=== PATIENT | male | born 1965 | race Caucasian/White ===

== ENCOUNTER 2025-03-08 07:52 | Outpatient (AMB) | payer MEDICARE, MEDICAID, SELFPAY ==
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
--- OUTSIDE RECORDS SUMMARY | 2025-03-08 07:56 | XMS_ITS | Encounter Summary ---
Author Organization [facility] Address [address] [place] [address] Phone Care Team Providers Care Speeder Frame Tender Name Role Phone True Madison MD Primary Care Provider [phone] Reason for Visit * Reason Onset Date Comments Med Refill 07/04/2022 Encounter Details Date Type Department Care Team (Late st Contact Info) Description 07/04/2022 Refill [facility] [address] [place] [id number] Justin Diaz, DO [address] [place] [address] Social History Tobacco Use Types Packs/Day Years Used Date Smoking Tobacco: Some Days Cigarettes 0.3 30 Started: 2019 Smokeless Tobacco: Never Alcohol Use Standard Drinks/Week Comments Never 0 (1 standard drink = 0.6 oz pur e alcohol) Sex and Gender Information Value Date Recorded Sex Assigned at Not on file Legal Sex Male 2:48 PM EDT Gender Identity Not on file Sexual Orientation Not on file documented as of this encounter Miscellaneous Notes * Telephone Encounter - Gloria Esteves - 07/10/2022 2:39 PM EST This PT is requesting that his Furosemide 20 MG be refilled. documented in this encounter Plan of Treatment Upcoming Encounters Date Type Department Care Team (Late st Contact Info) Description 03/12/2025 Orders Only [facility]. [address] [phone] Mukul Godinez MD [address] [phone] Isolated proteinuria 09/13/2025 2:15 PM EDT Office Visit [facility] [address] [place] [phone] Mukul Godinez MD [facility] [address] [phone] documented as of this encounter Visit Diagnoses Not on filedocumented in this encounter Care Teams Speeder Frame Tender Relationship Specialty Start Date End Date True Madison MD PCP - General Internal Medicine 02/02/21 documented as of this encounter
--- OUTSIDE RECORDS SUMMARY | 2025-03-08 07:56 | XMS_ITS ---
Author Name [facility] Organization Unknown Care Team Organization Name Specialty Phone Email Start Date End Da te [facility] ACO 02/17/2025 [facility] Jing Smith Primary [facility] 06/12/2023 02/17/2024 [facility] Gricelda Primary Care 05/08/2022 02/17/2024
--- OUTSIDE RECORDS SUMMARY | 2025-03-08 07:56 | XMS_ITS | Clinical Summary ---
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 04/01/20 24 Active Trelegy Ellipta 100-62.5-25 mcg inhalerIndicat ions:Chronic bronchitis, unspecified chronic bronchitis type (CMS/HCC V24, CMS/HCC V28) Inhale 1 puff (100 mcg total) by mouth 1 (one) time each day. 60 each 3 06/26/20 24 Active levalbuterol (Xopenex HFA) 45 mcg/actuation inhalerIndicat ions:Chronic bronchitis, unspecified chronic bronchitis type (CMS/HCC V24, CMS/HCC V28) Inhale 1-2 puffs by mouth every 6 (six) hours if needed for wheezing or shortness of breath (or cough). 15 g 3 06/26/20 24 2024 Active metoprolol succinate (TOPROL-XL) 50 mg 24 hr tablet 09/10/19 25 Active metFORMIN (GLUCOPHAGE) 500 mg tablet TAKE 1 TABLET BY MOUTH TWICE DAILY 180 tablet 1 09/26/19 25 Active gabapentin (NEURONTIN) 300 mg capsule Take 1 capsule (300 mg total) by mouth 2 (two) times a day. 180 each 1 10/06/19 25 2024 Active atorvastatin (LIPITOR) 20 mg tablet TAKE 1 TABLET BY MOUTH DAILY 90 tablet 1 11/13/19 25 Active magnesium oxide (MAG-OX) 400 mg (241.3 elemental magnesium) tablet TAKE 1 TABLET BY MOUTH 2 TIMES DAILY 60 tablet 3 11/17/19 25 Active albuterol HFA (Ventolin HFA) 90 mcg/actuation inhalerIndicat ions:Chronic bronchitis, unspecified chronic bronchitis type (CMS/HCC V24, CMS/HCC V28) Inhale 2 puffs by mouth every 6 (six) hours if needed for shortness of breath or wheezing. 18 g 1 11/18/19 25 2025 Active enalapril (VASOTEC) 20 mg tablet TAKE 1 TABLET BY MOUTH DAILY 90 tablet 1 12/25/19 25 Active NIFEdipine CC (ADALAT CC) 90 mg 24 hr tablet TAKE 1 TABLET BY MOUTH DAILY 90 tablet 1 12/25/19 25 Active famotidine (PEPCID) 20 mg tablet TAKE 2 TABLETS BY MOUTH TWICE DAILY 120 tablet 3 12/25/19 25 Active blood-glucose meter [facility] OneTouch Meter, Use daily or as directed for monitoring of diabetes. 1 each 01/12/20 25 Active lancets lancets OneTouch, Check blood sugar 1-2 times a day or as directed. 200 each 6 01/12/20 25 Active aspirin 81 mg EC tablet Take 1 tablet (81 mg total) by mouth 1 (one) time each day. 90 tablet 1 01/12/20 25 Active LORazepam (ATIVAN) 0.5 mg tablet Patient can take 1-2 tabs 30 minutes to an hour prior to MRI. 2 tablet 02/16/20 25 Active polyethylene glycol (Golytely) 236-22.74-6.74 -5.86 gram solution Take 4L by mouth once for one dose. May substitue any PEG. Starting at 6PM the night before your procedure drink 1 8oz glasses at your own pace until you complete half of the gallon. Finish 2nd half of the gallon 5 hours before your procedure. 4000 mL 12/23/19 25 2024 Discontinued(T herapy completed) bisacodyL (DULCOLAX) 5 mg EC tablet Take 2 tablets by mouth right before beginning bowel prep. See instructions provided by the office 2 tablet 12/23/19 25 2024 Discontinued(T herapy completed) glucose blood test strip OneTouch, Check blood glucose daily 100 strip 5 01/12/20 25 2024 Discontinued Hospital, Clinic, or Other Facility Administered Medication Ordered Dose Route Frequency Start Date End Date Status perflutren lipid microsphere (DEFINITY) 1.3 mL in sodium chloride 0.9% 8.7 mL injectionIndications: est pain, unspecified type,Coronary artery disease due to lipid rich plaque 10 mL IV Once in imaging 02/11/2025 Active Active Problems Problem Noted Date Diagnosed Date Sacroiliitis, not elsewhere classified ([facility] V24) 06/23/2024 Assessment & Plan (06/23/2024 12:55 PM EST): Mr. Fabian describes several years of right sided low back pain. Sometimes he gets radiation to the anterior thigh. He had a right L2 transforaminal epidural injection in November that partially relieved his pain for several months, but a second injection made things worse. He had severe reproduction of his pain with palpation of the SI joint. Kb's maneuver, Gaenslen's test, and SI joint compression test were all positive on the right side. An MRI of the lumbar spine from [facility] reveals multilevel degenerative changes, a chronic compression fracture of L1, but nothing to explain his pain. I think this is coming from the SI joint. At this point he would like to proceed with physical therapy directed at the SI joint. If he does not get any better, we can send him for a steroid injection in the SI joint. Ultimately I could refer him to Dr. Vernon for consideration of SI joint fusion. Class 1 obesity with serious comorbidity and body mass index (BMI) of 33.0 to 33.9 in adult 05/12/2024 Hx of hepatitis C 04/03/2024 Severe obesity (BMI 35.0-39. 9) with comorbidity ([facility] V24, [facility] V28) 04/03/2024 Tobacco use 04/03/2024 Diabetes mellitus ([facility] V24, [facility] V28) 10/2023 Chronic pain 02/03/2024 Uncontrolled type 2 diabetes mellitus with hyperglycemia ([facility] V24, [facility] V28) 08/27/2023 Assessment & Plan (07/07/2024 12:16 PM EST): Diabetes is previously uncontrolled likely due to corticosteroid injection. Patient is on insulin for a period of time, but is now off insulin, continues only on metformin. He has not been checking his blood sugars over the last 4 months. Refill of the strips and glucometer provided. Orders: Hemoglobin A1c; Future Comprehensive metabolic panel; Future Complete blood count; Future Thyroid stimulating hormone; Future Digital nerve laceration, finger, sequela 2022 Finger laceration involving tendon 04/16/2023 Enchondroma 10/25/2021 Overview (04/03/2024): sternum, accidental discovery on low dose CT scan for lung Ca screening, rediology recommended 6 month repeat. Proteinuria 04/12/2021 Recurrent and persistent hem aturia with other morphologic changes 04/12/2021 Cirrhosis ([facility] V24, [facility] V28) 04/22/2017 DDD (degenerative disc disease), lumbar 05/03/[address] scan, chest 11/25/2014 Overview (04/03/2024): LLL pl thickening w Pl Ca++ Chronic bronchitis ([facility] V24, [facility] V28) Chronic bilateral low back pain with right-sided sciatica 07/05/2014 Assessment & Plan (09/11/2024 3:49 PM EDT): Mr. Fabian describes right greater than left low back pain with radiation to the right groin and anterior thigh to the knee. He went to physical therapy without relief. NSAIDs do not seem to help. I am going to send him for some x-rays and an MRI of the lumbar spine to better understand his situation. His last MRI was in August 2023 and did not show any nerve root compression. Follow-up after the imaging. Assessment & Plan (07/07/2024 12:16 PM EST): He has ongoing back issues for which she is following with physiatry and neurosurgery. No change in his symptoms. Pulmonic stenosis 08/18/2012 Assessment & Plan (02/12/2025 3:39 PM EDT): Will update surveillance echocardiogram to further evaluate gradients. Hyperlipidemia 03/06/2012 Assessment & Plan (02/12/2025 3:39 PM EDT): He will continue on his current dose of Lipitor 20 mg and be mindful of his dietary fat intake. Last recent fasting lipid profile with an LDL of 59. CAD (coronary artery disease) 01/23/2012 Assessment & Plan (02/12/2025 3:39 PM EDT): Denies any anginal symptoms. He remains on cardioprotective medical therapy of aspirin, statin and beta-rob. Instructed to call 911 or go to the emergency room should the patient begin to experience chest pain or pressure lasting greater than 10 minutes does not resolve with rest. Orders: Transthoracic echocardiogram (TTE) complete with PRN contrast, bubble, strain, and 3D order panel; Future perflutren lipid microsphere (DEFINITY) 1.3 mL in sodium chloride 0.9% 8.7 mL injection HTN (hypertension) 01/23/2012 Assessment & Plan (02/12/2025 3:39 PM EDT): Does appear to be elevated during today's exam however has been well-controlled at previous visits. At this time he will continue on his current dose of enalapril, nifedipine and metoprolol. Educated on the importance of diet lifestyle to help further assist in reducing blood pressure. The patient was encouraged to follow low-salt low-fat diet, make purposeful strides towards weight loss, and engage in routine aerobic exercise as tolerated. Discussed the potential of medication titration should his blood pressure remain elevated at subsequent visits despite diet and lifestyle modification. Ankle pain 01/23/2012 Encounters Date Type Department Care Team Description 02/21/2025 Telephone Adult Medicine [address] [place] [address] Lali Looney NP 02/16/2025 6:30 PM EDT - 02/16/2025 11:59 PM EDT Hospital Encounter [facility] MRI [address] [place] [phone] MCI (mild cognitive impairment); Memory change Discharge Disposition: Home or Self Care 02/16/2025 1:15 PM EDT Office Visit Orthopedic Surgery - [address] [facility] [address] [place] [phone] Zen Balderas DPM Exostosis of bone of foot (Primary Dx); Diabetic mononeuropathy simplex ([facility] V24, [facility] V28); Type II diabetes mellitus with peripheral circulatory disorder ([facility] V24, [facility] V28); Dermatophytosis of nail; Pain in toe of left foot; Pain in toe of right foot 02/15/2025 7:00 AM EDT Ancillary Procedure [facility] [address] [place] [phone] Chest pain, unspecified type; Coronary artery disease due to lipid rich plaque 02/11/2025 2:40 PM EDT Office Visit [facility] - [facility] [address] [facility] [address] [place] [phone] Arlin De Dios NP Chest pain, unspecified type (Primary Dx); Coronary artery disease due to lipid rich plaque; Snoring; Primary hypertension; Mixed hyperlipidemia; Pulmonary valve stenosis, unspecified etiology 02/11/2025 8:45 AM EDT Office Visit Adult Medicine [address] [phone] Lali Looney NP MCI (mild cognitive impairment) (Primary Dx); Memory change; DM (diabetes mellitus) type 2, uncontrolled, with ketoacidosis ([facility] V24, [facility] V28); Chronic bilateral low back pain with right-sided sciatica 02/11/2025 Telephone Adult Medicine [facility] [place] [address] [place] [phone] True Madison MD 01/19/2025 Telephone Pulmonolgy [facility] [address] [facility] [address] [place] [phone] Jing Smith NP 01/18/2025 Telephone Adult Medicine [address] [phone] Lali Looney NP 01/11/2025 7:30 AM EDT Office Visit Adult Medicine [address] [phone] Lali Looney, SONIA Chronic bilateral low back pain with right-sided sciatica (Primary Dx); Degeneration of intervertebral disc of lumbar region with lower extremity pain; Type 2 diabetes mellitus with diabetic neuropathy, without long-term current use of insulin (CMS/HCC V24, CMS/HCC V28); Memory change; Venous disease; Bone spur; Elevated alkaline phosphatase level; Primary hypertension; Encounter for screening for malignant neoplasm of prostate 01/05/2025 1:16 PM EDT Anesthesia Event [facility] Endoscopy [address] [place] [phone] Kvng Joseph MD 01/05/2025 11:31 AM EDT - 01/05/2025 11:59 PM EDT Hospital Encounter [facility] [address] [place] [phone] Shilpa Rios MD Burton, Heather, CRNA Gomes, Sheldon B, MD Colon cancer screening Discharge Disposition: Home or Self Care 12/28/2024 2:20 PM EDT [facility] [address] [facility] [address] [place] [phone] Jing Smith, SONIA Chronic bronchitis, unspecified chronic bronchitis type (CMS/HCC V24, CMS/HCC V28) (Primary Dx); Abnormal CT scan, chest from Last 3 Months Immunizations Name Administration Dates Next Due Hepatitis A Adult (Havrix; V aqta) 19yo and older 06/03/2017 Influenza Quadravalent, MDCK , 0.5ml, preservative free (Flucelvax) 6mo and older 03/12/2023,03/14/2022 Influenza trivalent, 0.5mL ( Fluzone High-dose) 65yo and older 03/28/2016,05/03/2015,05/02/2014,2011,04/26/2010 Influenza trivalent, 0.5mL, preservative free (Fluarix; FluLaval; Fluzone) ages 6mo and older (Afluria) 3 years and older 03/12/2024 Influenza trivalent, with preservative (Fluzone; Afluria) 6mo and older 04/21/2021,03/28/2020 Influenza, Unspecified 03/12/2022,04/21/2021 Pfizer (ages 12 & older) Biv alent, COVID-19 03/14/2022 Pfizer SARS-CoV-2 COVID-19, mRNA, LNP-S, preservative free 10/13/2020 Pneumococcal conjugate 13 va lent (Prevnar 13, PCV13) 2mo and older 12/22/2015 Pneumococcal conjugate 20 va lent (Prevnar 20, PCV 20) 2mo and older 03/12/2024 Tdap Tetanus diptheria acell ular pertussis (Boostrix; Adacel) 7yo and older 01/08/2023,04/11/2022,03/06/2012 Surgical History Surgery Date Site/Laterality Comments ANKLE SURGERY PROCEDURE: HISTORICAL ANKLE SURGERY; COMMENT: fell from roof 2005 - ANGIOPLASTY PROCEDURE: HISTORICAL ANGIOPLASTY; COMMENT: 1994 OTHER SURGICAL HISTORY PROCEDURE: ---- OTHER ----; COMMENT: subdural hematoma - traumatic COLONOSCOPY 2014 PROCEDURE: HISTORICAL COLONOSCOPY; COMMENT: normal Medical History Medical History Date Comments CAD (coronary artery disease) 01/23/2012 DX :CAD (coronary artery disease) HTN (hypertension) 01/23/2012 DX:HTN (hyper tension) Ankle pain 01/23/2012 DX:Ankle pain Hyperlipidemia 03/06/2012 DX:Hyperlipidemi a Pulmonic stenosis 08/18/2012 DX:Pulmonic st enosis Back pain 07/05/2014 DX:Back pain Cirrhosis (CMS/HCC V24, CMS/HCC V28) 04/22/2017 DX:Cirrhosis (HCC) History of hepatitis C 03/11/2013 DX:Histor y of hepatitis C; COMMENT: Chronic Hepatitis C Genotype 1A. Tx Started 02/04/17 Harvoni 90-400 mg tabs. Take 1 tab daily for 12 weeks. End date 04/29/17. 08/05/2017: HCV=zero=SVR 12. Diabetes mellitus (CMS/HCC V 24, CMS/HCC V28) Heart murmur Colon polyp Family History Medical History Relation Name Comments Colon cancer Neg Hx Relation Name Status Comments Father (Age 51) gunshot - polio Mother (Age 62) pe, dm Sister 1 Alive dm Sister 2 Alive Social History Tobacco Use Types Packs/Day Years Used Date Smoking Tobacco: Every Day Cigarettes 0.3 44.4 Started: 1979; Last attempted to quit: 12/30/2023 Smokeless Tobacco: Never Tobacco Cessation:Ready to Q uit: Not Asked; Counseling Given: Not Answered Alcohol Use Standard Drinks/Week Comments No 0 (1 standard drink = 0.6 oz pur e alcohol) Interpersonal Safety Answer Date Record ed Physical Abuse 01/05/2025 Verbal Abuse 01/05/2025 Sex and Gender Information Value Date Recorded Sex Assigned at Male 07/13/2024 3:53 PM EST Legal Sex Male 3:26 PM EST Gender Identity Male 07/13/2024 3:53 PM EST Sexual Orientation Straight 07/13/2024 3: 53 PM EST Obstetrics History Last Filed Vital Signs Vital Sign Reading Time Taken Comments Blood Pressure 150/70 02/15/2025 7:50 AM EDT Pulse 55 02/11/2025 2:51 PM EDT Temperature 36.4 C (97.5 F) 02/11/2025 8:48 AM EDT Respiratory Rate 14 02/11/2025 8:48 AM EDT Oxygen Saturation 97% 02/11/2025 2:51 PM EDT Inhaled Oxygen Concentration - - Weight 104 kg (229 lb) 02/15/2025 7:50 AM EDT Height 170.2 cm (5' 7 ) 02/15/2025 7:50 AM EDT Body Mass Index 35.87 02/15/2025 7:50 AM EDT Plan of Treatment Upcoming Encounters Date Type Department Care Team (Late st Contact Info) Description 05/03/2025 1:00 PM EST Appointment [facility] Ultrasound [address] [place] [phone] 05/05/2025 1:15 PM EST Office Visit Orthopedic Surgery - [address] [place] [phone] Zen Balderas DPLyla 175 [facility] [address] [place] [phone] 06/21/2025 1:15 PM EST Office Visit Adult Medicine [facility] [address] [place] [phone] True Madison MD [address] [place] [address] 06/29/2025 2:20 PM EST Office Visit [facility] 175 [facility] [address] [place] [phone] Jing Smith, SONIA [address] [place] [phone] Health Maintenance Due Date Last Done Comments Zoster Vaccines (1 of 2) 2013 Medicare Annual Wellness Visit 06/09/2022 Social Influencers of Health Screening 06/09/2022 RSV Immunization Adult Patients (1 - Risk 60-74 years 1-dose series) 2023 COVID-19 Vaccine ( season) 2025 04/07/2023, 03/14/2022, 10/12/2021, Additional history exists Influenza Vaccine (#1) 2025 , 03/12/2023, 03/14/2022, Additional history exists Diabetes: Annual Retina Eye Exam 07/06/2025 07/06/2024 Diabetes: Blood Sugar Control Test (HGBA1C) 07/14/2025 01/11/2025, 07/23/2024, 04/17/2024, Additional history exists Diabetes: Annual Urine Albumin-Creatinine Ratio (uACR) 10/21/2025 10/21/2024, 09/19/2023, 09/19/2023, Additional history exists Diabetes: Annual Foot Exam 02/11/202602/11, 02/11/2025, 02/11/2025, Additional history exists Diabetes: Annual GFR (Glomerular Filtration Rate) 02/11/2026 02/11/2025, 01/18/2025, 01/11/2025, Additional history exists Hypertension/CHF/CAD Annual BMP Blood Test 02/11/2026 02/11/2025, 01/18/2025, 01/11/2025, Additional history exists Cholesterol Screening (Lipid Panel) 10/21/2029 10/21/2024, 06/05/2023, 06/05/2023 DTaP,Tdap,and Td Vaccines (4 - Td or Tdap) 01/08/2033 01/08/2023, 04/11/2022, 03/06/2012 Colorectal Cancer Screening: Colonoscopy 01/05/2035 01/05/2025, 10/14/2014, 10/14/2014 Hepatitis C Screening Completed 12/22/2012 Hepatitis A Vaccines Aged Out 06/03/2017 No long er eligible based on patient's age to complete this topic Pneumococcal Vaccine: 50+ Years Completed 03/12/2024, 12/22/2015 Depression Screening Completed 02/11/2025, 12/13/19 24 HIB Vaccines Aged Out No longer eligi ble based on patient's age to complete this topic HIV Screening Discontinued HPV Vaccines Aged Out No longer eligi ble based on patient's age to complete this topic Hepatitis B Vaccines Aged Out No long er eligible based on patient's age to complete this topic IPV Vaccines Aged Out No longer eligi ble based on patient's age to complete this topic MMR Vaccines Aged Out No longer eligi ble based on patient's age to complete this topic Meningococcal ACWY Vaccine Aged Out N o longer eligible based on patient's age to complete this topic Meningococcal B Vaccine Aged Out No l onger eligible based on patient's age to complete this topic RSV Immunization Patients Under 20 months Aged Out No longer eligible based on patient's age to complete this topic Varicella Vaccines Aged Out No longer eligible based on patient's age to complete this topic Medical Devices Implanted Type Area Drop Forger Helper Device Identifier Shelf Expiration Date Model / Serial / Lot Stents Stents N/A: Heart Procedures Procedure Name Priority Date/Time Associated Diagnosis Comments MR BRAIN WO CONTRAST Routine 02/16/2025 7:26 PM EDT MCI (mild cognitive impairment) Memory change TRANSTHORACIC ECHOCARDIOGRAM (TTE) COMPLETE Routine 02/15/2025 7:50 AM EDT Chest pain, unspecified type Coronary artery disease due to lipid rich plaque ECG 12-LEAD Routine 02/12/2025 3:39 PM EDT Chest pain, unspecified type DAHL URINE CULTURE TUBE Routine 02/11/2025 10:07 AM EDT MCI (mild cognitive impairment) Memory change URINALYSIS WITH REFLEX MICROSCOPIC AND CULTURE Routine 02/11/2025 10:07 AM EDT MCI (mild cognitive impairment) Memory change SEDIMENTATION RATE Routine 02/11/2025 10 :07 AM EDT MCI (mild cognitive impairment) Memory change TREPONEMA PALLIDUM ANTIBODY WITH REFLEX TO RPR AND PARTICLE AGGLUTINATION Routine 02/11/2025 10:07 AM EDT MCI (mild cognitive impairment) Memory change FOLATE Routine 02/11/2025 10:07 AM EDT MCI (mild cognitive impairment) Memory change VITAMIN B12 Routine 02/11/2025 10:07 AM EDT MCI (mild cognitive impairment) Memory change COMPREHENSIVE METABOLIC PANEL Routine 02/11/2025 10:07 AM EDT MCI (mild cognitive impairment) Memory change URINALYSIS WITH REFLEX MICROSCOPIC AND CULTURE Routine 02/11/2025 10:07 AM EDT MCI (mild cognitive impairment) Memory change POC GLUCOSE Routine 02/11/2025 9:45 AM EDT MCI (mild cognitive impairment) Memory change DM (diabetes mellitus) type 2, uncontrolled, with ketoacidosis (CMS/HCC V24, CMS/HCC V28) Chronic bilateral low back pain with right-sided sciatica COMPREHENSIVE METABOLIC PANEL Routine 01/18/2025 9:37 AM EDT Hyperkalemia Elevated alkaline phosphatase level HEMOGLOBIN A1C Routine 01/11/2025 11:01 AM EDT Uncontrolled type 2 diabetes mellitus with hyperglycemia (CMS/HCC V24, CMS/HCC V28) Hypertension, unspecified type COMPREHENSIVE METABOLIC PANEL Routine 01/11/2025 11:01 AM EDT Uncontrolled type 2 diabetes mellitus with hyperglycemia (CMS/HCC V24, CMS/HCC V28) Degeneration of intervertebral disc of lumbar region with lower extremity pain Mixed hyperlipidemia Primary hypertension Encounter for screening for malignant neoplasm of prostate PROSTATE SPECIFIC ANTIGEN SCREEN Routine 01/11/2025 11:01 AM EDT Encounter for screening for malignant neoplasm of prostate COLONOSCOPY Routine 01/05/2025 1:33 PM EDT Colon cancer screening MICROALBUMIN CREATININE URINE RATIO Routine 10/21/2024 10:34 AM EDT Uncontrolled type 2 diabetes mellitus with hyperglycemia (CMS/HCC V24, CMS/HCC V28) Hypertension, unspecified type LIPID PANEL WITH REFLEX TO DIRECT LDL Routine 10/21/2024 10:34 AM EDT Uncontrolled type 2 diabetes mellitus with hyperglycemia (CMS/HCC V24, CMS/HCC V28) Hypertension, unspecified type DEPRESSION SCREENING Routine 12/13/2023 DIABETES FOOT EXAM Routine 09/17/2023 HEPATITIS C SCREENING Routine 12/22/2012 from Last 3 Months or Most Recently Relevant to Health Maintenance Results * MR Brain wo Contrast (02/16/2025 7:26 PM EDT) Anatomical Region Laterality Modality Head and Neck Magnetic Resonan ce 02/18/2025 2:17 PM EDT Impressions 02/18/2025 2:26 PM EDT 1. Mild chronic microvascular ischemic changes of the supratentorial white matter. No acute intracranial findings. 2. Findings of chronic paranasal sinus disease, with layering fluid in the maxillary antra which could be secondary to acute sinusitis in the appropriate clinical setting. -------- FINAL REPORT -------- Dictated By: Valeriano Schuler Dictated Date: 02/18/2025 14:17 ET Assigned Physician: Valeriano Schuler Reviewed and Electronically Signed By: Valeriano Schuler Signed Date: 02/18/2025 14:26 ET Workstation ID: [id number] Transcribed By: Self Edit Transcribed Date: 02/18/2025 14:17 ET Narrative 02/18/2025 2:26 PM EDT PROCEDURE: Noncontrast MRI of the brain. HISTORY: Memory Loss Mental status change, unknown cause MCI. COMPARISON: None. TECHNIQUE: Multiplanar multisequence MRI of the brain without intravenous contrast administration. FINDINGS: BRAIN: No diffusion abnormality. No mass or extra-axial fluid collection. No hydrocephalus. The major intracranial flow voids are preserved. The right V4 flow void is small in caliber. Age commensurate ventricles and sulci. Scattered foci of T2 prolongation in the supratentorial white matter, nonspecific but likely sequela of mild chronic microvascular ischemic disease in a patient of this age. ORBITS: Normal. SINUSES/MASTOIDS: Mild mucosal thickening in the right frontal sinus and frontal ethmoidal recess. Mild mucosal thickening in the ethmoids, right greater than left. Mild mucosal thickening, small mucous retention cysts, and layering fluid in both maxillary antra. Minimal mucosal thickening in the inferior sphenoids. The right mastoid air cells are hypoplastic. CALVARIUM: Normal. OTHER: The visualized skull base soft tissues are normal. Procedure Note Valeriano Schuler MD - 02/18/2025 PROCEDURE: Noncontrast MRI of the brain. HISTORY: Memory Loss Mental status change, unknown cause MCI. COMPARISON: None. TECHNIQUE: Multiplanar multisequence MRI of the brain without intravenouscontrast administration. FINDINGS: BRAIN: No diffusion abnormality. No mass or extra-axial fluid collection.No hydrocephalus. The major intracranial flow voids are preserved. Theright V4 flow void is small in caliber. Age commensurate ventricles andsulci. Scattered foci of T2 prolongation in the supratentorial whitematter, nonspecific but likely sequela of mild chronic microvascularischemic disease in a patient of this age. ORBITS: Normal. SINUSES/MASTOIDS: Mild mucosal thickening in the right frontal sinus andfrontal ethmoidal recess. Mild mucosal thickening in the ethmoids, rightgreater than left. Mild mucosal thickening, small mucous retention cysts,and layering fluid in both maxillary antra. Minimal mucosal thickening inthe inferior sphenoids. The right mastoid air cells are hypoplastic. CALVARIUM: Normal. OTHER: The visualized skull base soft tissues are normal. IMPRESSION: 1. Mild chronic microvascular ischemic changes of the supratentorialwhite matter. No acute intracranial findings. 2. Findings of chronic paranasal sinus disease, with layering fluid inthe maxillary antra which could be secondary to acute sinusitis in theappropriate clinical setting. -------- FINAL REPORT -------- Dictated By: Valeriano Schuler Dictated Date: 02/18/2025 14:17 ET Assigned Physician: Valeriano Schuler Reviewed and Electronically Signed By: Valeriano Schuler Signed Date: 02/18/2025 14:26 ET Workstation ID: [id number] Transcribed By: Self Edit Transcribed Date: 02/18/2025 14:17 ET us Lali Looney LINE ANALYST IMG MRI PROCEDURES Final Res ult * (ABNORMAL) TRANSTHORACIC ECHOCARDIOGRAM (TTE) COMPLETE (02/15/2025 7:50 AM EDT) Left Atrium Minor Mancos 6.1 cm CV PACS Left Atrium Major Mancos 5.9 cm CV PACS LA Area Sys (A2C) 25 cm2 CV PACS LA Area Sys (A4C) 22 cm2 CV PACS LA Volume (BP) 75 mL CV PACS RA Area 17.1 cm2 CV PACS RA 2D Volume 41 mL CV PACS Aortic Sinus Valsalva 3.2 cm CV PACS Ascending Aorta 3.1 cm CV PACS IVC Proximal 1.9 cm CV PACS IVC Proximal 0.5 cm CV PACS IVSD 1.0 0.6 - 1.0 cm CV PACS LVIDD 4.9 4.2 - 5.8 cm CV PACS LVIDS 2.7 2.5 - 4.0 cm CV PACS LVOT Diameter 2.2 cm CV PACS LVOT Mean Brant 0.9 m/s CV PACS LVOT Mean Grad 4 mmHg CV PACS LVOT Peak VTI 32.4 cm CV PACS LVOT Peak Brant 1.4 m/s CV PACS LVOT Peak Gradient 7 mmHg CV PACS LVPWD 1.0 0.6 - 1.0 cm CV PACS MV E' Tissue Velocity Lateral 9 cm/s CV PACS MV E' Tissue Velocity Septal 9 cm/s CV PACS LVOT Area 3.8 cm2 CV PACS LVOT Stroke Volume 123 mL CV PACS E Wave Deceleration Time 285(A) 119 - 242 ms CV PACS MV Peak A Brant 0.85 m/s CV PACS MV Peak E Brant 0.97 m/s CV PACS PV Acceleration Time 116 ms CV PACS PV Acceleration Time 116 ms CV PACS PV Mean Gradient 10 mmHg CV PACS PV VTI 54.5 cm CV PACS PV Peak Velocity 2.2 m/s CV PACS PV Peak Gradient 19 mmHg CV PACS RV Diastolic Basal Dimension 3.4 2.5 - 4.1 cm CV PACS RV S' 12 cm/s CV PACS TAPSE 25 mm CV PACS E/E' Ratio Septal 11 CV PACS E/E' Ratio Averaged 11 CV PACS Relative Wall Thickness ratio 0.41 CV PACS FS 45 % CV PACS LV Mass 2D 176 g CV PACS LVOT flow 342 mL/s CV PACS E/A Ratio 1.1 CV PACS E/E' Ratio Lateral 11 CV PACS BSA 2.22 m2 CV PACS LA Volume Index (BP) 35 mL/m2 CV PACS LVIDD Index 2.29 cm/m2 CV PACS LVIDS Index 1.26 cm/m2 CV PACS LV Mass Index 2D 82 50 - 102 g/m2 CV PACS LVOT Stroke Index 57 mL/m2 CV PACS RA 2D Volume Index 19 18 - 32 mL/m2 CV PACS Ascending Aorta Index 1.45 cm/m2 CV PACS Anatomical Region Laterality Modality Ultrasound Narrative 02/22/2025 9:42 AM EDT Left ventricle cavity size is normal. Left ventricular systolic function is in the normal range with an ejection fraction of 65-70%. No regional LV wall motion abnormalities noted. Left ventricle wall thickness is normal. Right ventricle cavity is normal. Right ventricular systolic function is normal. Left atrium is mildly enlarged. Pulmonic valve demonstrates mildly increased gradients. Compared to 2023, no significant change. Left Ventricle Left ventricle cavity size is normal. Wall thickness is normal. Systolic function is normal with an ejection fraction of 65-70%. There are no regional LV wall motion abnormalities. Indeterminate diastolic function. Right Ventricle Right ventricle cavity appears normal. Systolic function is normal. Left Atrium Left atrium cavity is mildly dilated. Right Atrium Right atrium cavity is normal. IVC/SVC Inferior vena cava structure is normal. RA pressures is estimated to be 3 mmHg (IVC diameter <21 mm and decreases >50% during inspiration). Mitral Valve Mitral valve structure is normal. There is no significant mitral valve regurgitation. There is no significant stenosis noted. Tricuspid Valve Tricuspid valve structure is normal. Tricuspid regurgitation is inadequate for estimation of right ventricular systolic pressure. There is no significant tricuspid valve stenosis. Aortic Valve The aortic valve is trileaflet. The leaflets are not thickened and exhibit normal excursion. The leaflets are mildly calcified. There is no regurgitation or stenosis. Pulmonic Valve The pulmonic valve was not well visualized. No significant pulmonic valve regurgitation. There is mild stenosis. Ascending Aorta The aorta appears normal in size. Pericardium Pericardium appears normal. There is no pericardial effusion. Study Details Overall the study quality was adequate. Arlin De Dios NP CV ECHO PROCEDURES Fin al Result * ECG 12 lead (02/12/2025 3:39 PM EDT) 02/11/2025 2:56 PM EDT 02/12/2025 9:15 AM EDT Arlin De Dios NP ECG ORDERABLES Final Result GEMUSE * (ABNORMAL) Urinalysis with reflex microscopic and culture (02/11/2025 10:07 AM EDT) Specific [place] Urine 1.014 1.003 - 1.030 LAB URINALYSIS - AUTOMATED METHOD 02/11/2025 12:04 PM EDT [facility] pH, Urine 5.5 5.0 - 8.0 pH LAB URINALYSIS - AUTOMATED METHOD 02/11/2025 12:[address] [facility] Leukocytes, Urine Negative Negative LAB URINALYSIS - AUTOMATED METHOD 02/11/2025 12:[address] [facility] Nitrite, Urine Negative Negative LAB URINALYSIS - AUTOMATED METHOD 02/11/2025 12:[address] [facility] Protein, Urine 30(A) <=Trace mg/dL LAB URINALYSIS - AUTOMATED METHOD 02/11/2025 12:[address] [facility] Glucose, Urine Negative Negative mg/dL LAB URINALYSIS - AUTOMATED METHOD 02/11/2025 12:[address] [facility] Ketones, Urine Negative Negative mg/dL LAB URINALYSIS - AUTOMATED METHOD 02/11/2025 12:[address] [facility] Urobilinogen, Urine 0.2 0.2 - 1.0 mg/dL LAB URINALYSIS - AUTOMATED METHOD 02/11/2025 12:[address] [facility] Bilirubin, Urine Negative Negative LAB URINALYSIS - AUTOMATED METHOD 02/11/2025 12:[address] [facility] Blood, Urine Negative Negative LAB URINALYSIS - AUTOMATED METHOD 02/11/2025 12:[address] [facility] RBC, Urine 1.1 0 - 4 /HPF LAB URINALYSIS - AUTOMATED METHOD 02/11/2025 12:[address] [facility] WBC, Urine 0.7 0 - 4 /HPF LAB URINALYSIS - AUTOMATED METHOD 02/11/2025 12:[address] [facility] Squamous Epithelial, Urine 6 0 - 60 /LPF LAB URINALYSIS - AUTOMATED METHOD 02/11/2025 12:[address] [facility] Bacteria, Urine Negative Negative /HPF LAB URINALYSIS - AUTOMATED METHOD 02/11/2025 12:04 PM EDT [facility] Hyaline Casts, Urine 0.0 0 - 3 /LPF LAB URINALYSIS - AUTOMATED METHOD 02/11/2025 12:04 PM EDT [facility] Urine Urine specimen obtained by clean catch procedure / Unknown Non-blood Collection / Unknown 02/11/2025 10:07 AM EDT 02/11/2025 10:07 AM EDT Lali Looney LINE ANALYST LAB URINE ORDERABLES Final R esult Performing Organization Address [facility]/ZIP Co de Phone Number [facility] [address] [place] [address], [place] [phone] * Treponema pallidum antibody with reflex to RPR and particle agglutination (02/11/2025 10:07 AM EDT) T. Pallidum Antibodies Negative Negative LAB CHEMISTRY METHOD 02/11/2025 2:49 PM EDT [facility] Blood Venous blood specimen / Unknown Venipuncture / Unknown 02/11/2025 10:07 AM EDT 02/11/2025 10:07 AM EDT Lali Looney LINE ANALYST LAB BLOOD ORDERABLES Final R esult Performing Organization Address [facility]/ZIP Co de Phone Number [facility] [address] [place] [address], [place] [phone] * Dahl urine culture tube (02/11/2025 10:07 AM EDT) Extra Tube Hold for add-ons. 02/11/2025 12:01 PM EDT [facility] Comment:Auto resulted. Urine Urine specimen obtained by clean catch procedure / Unknown Non-blood Collection / Unknown 02/11/2025 10:07 AM EDT 02/11/2025 10:07 AM EDT Lali Looney LINE ANALYST LAB URINE ORDERABLES Final R esult [facility] [address] [place] [address], [place] [phone] * Sedimentation rate (02/11/2025 10:07 AM EDT) [facility] Sed Rate 11 0 - 20 mm/hr LAB HEMETOLOGY METHOD 02/11/2025 12:02 PM EDT [facility] Blood Venous blood specimen / Unknown Venipuncture / Unknown 02/11/2025 10:07 AM EDT 02/11/2025 10:07 AM EDT Lali Looney LINE ANALYST LAB BLOOD ORDERABLES Final R esult Performing Organization Address City/[facility]/ZIP Co de Phone Number [facility] [address] [place] [address], [place] [phone] * Folate (02/11/2025 10:07 AM EDT) [facility] Folate 11.7 2.8 - 17.0 ng/ml LAB CHEMISTRY METHOD 02/11/2025 2:00 PM EDT [facility] Blood Venous blood specimen / Unknown Venipuncture / Unknown 02/11/2025 10:07 AM EDT 02/11/2025 10:07 AM EDT Lali Looney LINE ANALYST LAB BLOOD ORDERABLES Final R esult [facility] [address] [place] [address], [place] [phone] * Vitamin B12 (02/11/2025 10:07 AM EDT) [facility] Vitamin B-12 569 250 - 900 pcg/mL LAB CHEMISTRY METHOD 02/11/2025 2:00 PM EDT [facility] Blood Venous blood specimen / Unknown Venipuncture / Unknown 02/11/2025 10:07 AM EDT 02/11/2025 10:07 AM EDT Lali Looney NP LAB BLOOD ORDERABLES Final R esult [facility] [address] [place] [address], * (ABNORMAL) Comprehensive metabolic panel (02/11/2025 10:07 AM EDT) Only the most recent of3 resultswithin the time period is included. Sodium 136 133 - 145 mmol/L LAB CHEMISTRY METHOD 02/11/2025 2:[address] [facility] Potassium 4.6 3.5 - 5.5 mmol/L LAB CHEMISTRY METHOD 02/11/2025 2:[address] [facility] Chloride 105 96 - 110 mmol/L LAB CHEMISTRY METHOD 02/11/2025 2:[address] [facility] CO2 26 21 - 32 mmol/L LAB CHEMISTRY METHOD 02/11/2025 2:[address] [facility] Anion Gap 5 3 - 11 LAB CHEMISTRY METHOD 02/11/2025 2:[address] [facility] Glucose 120(H) 70 - 100 mg/dL LAB CHEMISTRY METHOD 02/11/2025 2:[address] [facility] BUN 15 5 - 25 mg/dL LAB CHEMISTRY METHOD 02/11/2025 2:[address] [facility] Creatinine 0.91 0.70 - 1.30 mg/dL LAB CHEMISTRY METHOD 02/11/2025 2:[address] [facility] eGFR 96 >=60 mL/min/1. 73m2 LAB CHEMISTRY METHOD 02/11/2025 2:[address] [facility] Comment:Calculation based on the Chronic Kidney Disease Epidemiology Collaboration (CKD-EPI) equation refit without adjustment for race. BUN/Creatinine Ratio 16.5 LAB CHEMISTRY METHOD 02/11/2025 2:00 PM EDT [facility] Calcium 9.2 8.5 - 10.5 mg/dL LAB CHEMISTRY METHOD 02/11/2025 2:[address] [facility] AST (SGOT) 18 10 - 42 unit/L LAB CHEMISTRY METHOD 02/11/2025 2:[address] [facility] ALT (SGPT) 26 10 - 60 unit/L LAB CHEMISTRY METHOD 02/11/2025 2:[address] [facility] Alkaline Phosphatase 111 42 - 121 unit/L LAB CHEMISTRY METHOD 02/11/2025 2:[address] [facility] Total Protein 7.2 6.0 - 8.0 g/dL LAB CHEMISTRY METHOD 02/11/2025 2:[address] [facility] Albumin 4.0 3.2 - 5.0 g/dL LAB CHEMISTRY METHOD 02/11/2025 2:[address] [facility] Total Bilirubin 0.4 0.0 - 1.4 mg/dL LAB CHEMISTRY METHOD 02/11/2025 2:[address] [facility] Blood Venous blood specimen / Unknown Venipuncture / Unknown 02/11/2025 10:07 AM EDT 02/11/2025 10:07 AM EDT us Lali Looney LINE ANALYST LAB BLOOD ORDERABLES Final R esult [facility] [address] [place] [address], * POC glucose manually resulted (02/11/2025 9:45 AM EDT) Glucose POC 163 mg/dL Blood Capillary blood specimen / Unknown 02/11/2025 9:45 AM EDT Lali Looney LINE ANALYST POINT OF CARE TEST ENTER/DALILA T ORDERABLES Final Result * Prostate specific antigen screen (01/11/2025 11:01 AM EDT) PSA 0.55 0.00 - 4.00 ng/mL LAB CHEMISTRY METHOD 01/11/2025 8:06 PM EDT [facility] Blood Venous blood specimen / Unknown Venipuncture / Unknown 01/11/2025 11:01 AM EDT 01/11/2025 11:01 AM EDT Narrative [facility] - 01/11/2025 8:06 PM EDT The Siemens Advia Sanookaur Chemiluminescent Immunoassay is used. Results obtained with different assay methods or kits cannot be used interchangeably. Results cannot be interpreted as absolute evidence of the presence or absence of malignant disease. Lali Looney LINE ANALYST LAB BLOOD ORDERABLES Final R esult [facility] [address] [place] [address], * (ABNORMAL) Hemoglobin A1c (01/11/2025 11:01 AM EDT) Hemoglobin A1C 6.5(H) <6.5 % LAB CHEMISTRY METHOD 01/11/2025 3:17 PM EDT [facility] Mean Bld Glu Estim. 140 mg/dL LAB CHEMISTRY METHOD 01/11/2025 3:17 PM EDT [facility] Blood Venous blood specimen / Unknown Venipuncture / Unknown 01/11/2025 11:01 AM EDT 01/11/2025 11:01 AM EDT Rigoberto Leos PA LAB BLOOD ORDERABLES Fin al Result [facility] [address] [place] [address], * COLONOSCOPY Anesthesia - MAC; [facility] ENDOSCOPY (01/05/2025 1:33 PM EDT) Anatomical Region Laterality Modality Endoscopy 01/05/2025 1:20 PM EDT Impressions 01/05/2025 1:33 PM EDT - Internal hemorrhoids. - The examination was otherwise normal on direct and retroflexion views. - No specimens collected. Recommendation: - Discharge patient to home. - Repeat colonoscopy in 10 years for screening purposes. Narrative 01/05/2025 1:33 PM EDT [facility] GI Patient Name: Malik Llanos Procedure Date: 01/05/2025 1:20 PM Date of : 1965 Age: 59 Gender: Male Note Status: Finalized Attending MD: Shilpa Rios MD, Procedure Date No Time: 01/05/2025 Procedure: Colonoscopy Indications: Screening for colorectal malignant neoplasm Providers: Shilpa Rios MD Referring MD: Shilpa Rios MD Medicines: Monitored Anesthesia Care Complications: No immediate complications. Estimated Blood Loss: Estimated blood loss: none. Procedure: Pre-Anesthesia Assessment: - Prior to the procedure, a History and Physical was performed, and patient medications and allergies were reviewed. The patient is competent. The risks and benefits of the procedure and the sedation options and risks were discussed with the patient. All questions were answered and informed consent was obtained. Patient identification and proposed procedure were verified by the physician, the nurse, the environmental health and safety intern and the central processing technician in the pre-procedure area in the endoscopy suite. Mental Status Examination: alert and oriented. Airway Examination: normal oropharyngeal airway and neck mobility. Respiratory Examination: clear to auscultation. CV Examination: normal. Prophylactic Antibiotics: The patient does not require prophylactic antibiotics. Prior Anticoagulants: The patient has taken no anticoagulant or antiplatelet agents. ASA Grade Assessment: II - A patient with mild systemic disease. After reviewing the risks and benefits, the patient was deemed in satisfactory condition to undergo the procedure. The anesthesia plan was to use monitored anesthesia care (MAC). Immediately prior to administration of medications, the patient was re-assessed for adequacy to receive sedatives. The heart rate, respiratory rate, oxygen saturations, blood pressure, adequacy of pulmonary ventilation, and response to care were monitored throughout the procedure. The physical status of the patient was re-assessed after the procedure. After I obtained informed consent, the scope was passed under direct vision. Throughout the procedure, the patient's blood pressure, pulse, and oxygen saturations were monitored continuously. The Colonoscope was introduced through the anus and advanced to the cecum, identified by appendiceal orifice and ileocecal valve. The colonoscopy was performed without difficulty. The patient tolerated the procedure well. The quality of the bowel preparation was good. Findings: The perianal and digital rectal examinations were normal. Internal hemorrhoids were found during endoscopy. The hemorrhoids were Grade I (internal hemorrhoids that do not prolapse). The exam was otherwise without abnormality on direct and retroflexion views. Procedure Code(s): --- Professional --- G0121, Colorectal cancer screening; colonoscopy on individual not meeting criteria for high risk Diagnosis Code(s): --- Professional --- Z12.11, Encounter for screening for malignant neoplasm of colon CPT copyright 2020 [employer]. All rights reserved. The codes documented in this report are preliminary and upon painter foreman review may be revised to meet current compliance requirements. Shilpa Rios MD 01/05/2025 1:33:48 PM This report has been signed electronically.Shilpa Rios MD Number of Addenda: 0 Note Initiated On: 01/05/2025 1:20 PM Scope Withdrawal Time: 0 hours 6 minutes 48 seconds Scope In: 1:23:56 PM Scope Out: 1:32:41 PM Endoscopy Department at [facility] - [address] [place] [id number] Procedure Note Shilpa Rios MD - 01/05/2025 [facility] GI Patient Name: Malik Llanos Procedure Date: 01/05/2025 1:20 PM Date of : 1965 Age: 59 Gender: Male Note Status: Finalized Attending MD: Shilpa Rios MD, Procedure Date No Time: 01/05/2025 Procedure: Colonoscopy Indications: Screening for colorectal malignant neoplasm Providers: Shilpa Rios MD Referring MD: Shilpa Rios MD Medicines: Monitored Anesthesia Care Complications: No immediate complications. Estimated Blood Loss: Estimated blood loss: none. Procedure: Pre-Anesthesia Assessment: - Prior to the procedure, a History and Physicalwas performed, and patient medications and allergieswere reviewed. The patient is competent. The risks and benefits of the procedure and the sedation optionsand risks were discussed with the patient. Allquestions were answered and informed consent was obtained. Patient identification and proposed procedure were verified by the physician, the nurse, theanesthetist and the central processing technician in the pre-procedure area in the endoscopy suite. Mental Status Examination: alertand oriented. Airway Examination: normal oropharyngeal airway and neck mobility. Respiratory Examination: clear to auscultation. CV Examination: normal. Prophylactic Antibiotics: The patient does notrequire prophylactic antibiotics. Prior Anticoagulants: The patient has taken no anticoagulant or antiplatelet agents. ASA Grade Assessment: II - A patient withmild systemic disease. After reviewing the risks and benefits, the patient was deemed in satisfactory condition to undergo the procedure. The anesthesia plan was to use monitored anesthesia care (MAC). Immediately prior to administration of medications, the patient was re-assessed for adequacy to receive sedatives. The heart rate, respiratory rate, oxygen saturations, blood pressure, adequacy of pulmonary ventilation, and response to care were monitored throughout the procedure. The physical status ofthe patient was re-assessed after the procedure. After I obtained informed consent, the scope was passed under direct vision. Throughout theprocedure, the patient's blood pressure, pulse, and oxygen saturations were monitored continuously. The Colonoscope was introduced through the anus and advanced to the cecum, identified by appendiceal orifice and ileocecal valve. The colonoscopy was performed without difficulty. The patient tolerated the procedure well. The quality of the bowel preparation was good. Findings: The perianal and digital rectal examinations were normal. Internal hemorrhoids were found during endoscopy.The hemorrhoids were Grade I (internal hemorrhoids thatdo not prolapse). The exam was otherwise without abnormality ondirect and retroflexion views. Procedure Code(s): --- Professional --- G0121, Colorectal cancer screening; colonoscopy on individual not meeting criteria for high risk Diagnosis Code(s): --- Professional --- Z12.11, Encounter for screening for malignantneoplasm of colon CPT copyright 2020 [employer]. All rights reserved. The codes documented in this report are preliminary and upon painter foreman reviewmay be revised to meet current compliance requirements. Shilpa Rios MD 01/05/2025 1:33:48 PM This report has been signed electronically.Shilpa Rios MD Number of Addenda: 0 Note Initiated On: 01/05/2025 1:20 PM Scope Withdrawal Time: 0 hours 6 minutes 48 seconds Scope In: 1:23:56 PM Scope Out: 1:32:41 PM Endoscopy Department at [facility] - [address] [place] [phone] IMPRESSION: - Internal hemorrhoids. - The examination was otherwise normal on directand retroflexion views. - No specimens collected. Recommendation: - Discharge patient to home. - Repeat colonoscopy in 10 years for screening purposes. Shilpa Rios MD GI~PROCEDURE ORDERABLES Fin al Result * (ABNORMAL) Lipid panel with reflex to direct LDL (10/21/2024 10:34 AM EDT) Cholesterol 101 0 - 200 mg/dL LAB CHEMISTRY METHOD 10/21/2024 1:33 PM EDT [facility] Triglycerides 74 0 - 150 mg/dL LAB CHEMISTRY METHOD 10/21/2024 1:33 PM EDT [facility] HDL 27(L) >=40 mg/dL LAB CHEMISTRY METHOD 10/21/2024 1:33 PM EDT [facility] LDL Calculated 59 0 - 100 mg/dL LAB CHEMISTRY METHOD 10/21/2024 1:33 PM EDT [facility] VLDL Cholesterol Edwin 14.8 mg/dL LAB CHEMISTRY METHOD 10/21/2024 1:33 PM EDT [facility] Non HDL Chol. (LDL+VLDL) 74 <145 mg/dL LAB CHEMISTRY METHOD 10/21/2024 1:33 PM EDT [facility] Chol/HDL Ratio 3.7 0.0 - 4.4 LAB CHEMISTRY METHOD 10/21/2024 1:33 PM EDT [facility] Blood Venous blood specimen / Unknown Venipuncture / Unknown 10/21/2024 10:34 AM EDT 10/21/2024 10:34 AM EDT Rigoberto RINALDI LAB BLOOD ORDERABLES Fin al Result Performing Organization Address [facility]/ZIP Co de Phone Number [facility] [address] [place] [address], [place] [phone] * (ABNORMAL) Microalbumin creatinine urine ratio (10/21/2024 10:34 AM EDT) Creatinine, Urine 183.0 mg/dL LAB CHEMISTRY METHOD 10/21/2024 2:08 PM EDT [facility] Microalb, Ur 302.0(H) 0.0 - 29.0 mg/L LAB CHEMISTRY METHOD 10/21/2024 2:08 PM EDT [facility] Microalb/Crea t Ratio 165(H) <30 mg/g creat LAB CHEMISTRY METHOD 10/21/2024 2:08 PM EDT [facility] Urine Urine specimen obtained by clean catch procedure / Unknown Non-blood Collection / Unknown 10/21/2024 10:34 AM EDT 10/21/2024 10:34 AM EDT Rigoberto RINALDI LAB URINE ORDERABLES Fin al Result Performing Organization Address City/[facility]/ZIP Co de Phone Number [facility] [address] [place] [address], [place] [phone] * Depression Screening (12/13/2023) Depression Screening Abstracted Historical Provider HEALTH MAINTENANCE Final Result * Diabetes Foot Exam (09/17/2023) Diabetes: Annual Foot Exam Abstracted Historical Provider HEALTH MAINTENANCE Final Result * Hepatitis C Screening (12/22/2012) Hepatitis C Screening Abstracted us Historical Provider HEALTH MAINTENANCE Final Result from Last 3 Months or Most Recently Relevant to Health Maintenance Insurance MEDICARE [place]ICAID [place] [employer] Care Teams [employer] Operator Relationship Specialty Start Date End Date True [place] MD 4 [place] [address] PCP - General Internal Medicine 04/27/15
--- OUTSIDE RECORDS SUMMARY | 2025-03-08 07:56 | XMS_ITS | Clinical Summary ---
Author Organization [facility] Address [address] [place] [phone] Phone Care Team Providers Care [employer] [facility] Name Role Phone True Madison MD Primary Care Provider [phone] Allergies Active Allergy Reactions Criticality Noted Date Comments Penicillins Hives 04/11/2021 Medications albuterol HFA (PROVENTIL HFA;VENTOLIN HFA) 108 (90 Base) MCG/ACT inhaler Inhale 2 puffs every 6 (six) hours if needed for wheezing Active omeprazole (PriLOSEC) [address] capsule Take 20 mg by mouth 1 (one) time each day Do not crush or chew. Active atorvastatin (LIPITOR) 20 MG tablet Take 20 mg by mouth 1 (one) time each day Active aspirin (ST SHARAN) 81 MG EC tablet Take 81 mg by mouth 1 (one) time each day Active Advair HFA 230-21 MCG/ACT inhaler INHALE 2 PUFFS TWICE DAILY - RINSE MOUTH AFTER USE TO PREVENT THRUSH 4 Active metFORMIN (GLUCOPHAGE) 500 MG tablet Take 500 mg by mouth in the morning and 500 mg in the evening. 4 Active magnesium oxide 400 (240 Mg) MG tablet Take 1 tablet by mouth in the morning and 1 tablet in the evening. 5 Active metoprolol succinate XL (TOPROL XL) 50 MG 24 hr tablet Take 1.5 tablets (75 mg total) by mouth 1 (one) time each day 135 tablet 3 5 09/05/19 26 Active enalapril (VASOTEC) 20 MG tablet Take 1 tablet (20 mg total) by mouth 1 (one) time each day 30 tablet 3 5 Active NIFEdipine CC (ADALAT CC) 90 MG 24 hr tablet Take 1 tablet (90 mg total) by mouth 1 (one) time each day before breakfast Do not crush, chew, or split. 30 tablet 3 5 Active Active Problems Problem Noted Date Diagnosed Date Obese class II 08/15/2023 Severe obesity 06/26/2022 Enchondroma of bone 10/25/2021 Overview (07/23/2022): sternum, accidental discovery on low dose CT scan for lung Ca screening, rediology recommended 6 month repeat. Proteinuria, not otherwise specified 04/12/2021 Hypertension 04/12/2021 Recurrent and persistent hem aturia with other morphologic changes 04/12/2021 Cirrhosis 04/22/2017 Degeneration of lumbar intervertebral disc 05/03 Chronic bronchitis 11/25/2014 History of hepatitis C 03/11/2013 Overview (04/26/2021): Chronic Hepatitis C Genotype 1A. Tx Started 02/04/17 Harvoni 90-400 mg tabs. Take 1 tab daily for 12 weeks. End date 04/29/17. 08/05/2017: HCV=zero=SVR 12. Pulmonic valve stenosis 08/18/2012 Hyperlipidemia 03/06/2012 Coronary arteriosclerosis 01/23/2012 Encounters Date Type Department Care Team Description 12/23/2024 Refill [facility] [address] [place] [phone] Mukul Godinez MD from Last 3 Months Immunizations Immunization Administration Dates Next Due Hepatitis A 06/03/2017 Influenza TIV (IM) 03/28/2016,05/03/2015, 014,03/06/2012 Pfizer SARS-COV-2 04/21/2021,10/13/2020,09/23/19 21 Pneumococcal Conjugate 13-Valent 12/22/2015 Tdap 01/08/2023,04/11/2022,03/06/2012 Family History Medical History Relation Comments Diabetes Mother Diabetes Sister Relation Status Comments Mother Sister Social History Tobacco Use Types Packs/Day Years Used Date Smoking Tobacco: Some Days Cigarettes 0.3 30 Started: 2019 Passive Smoke Exposure: Never Smokeless Tobacco: Never Tobacco Cessation:Ready to Q uit: No; Counseling Given: No Alcohol Use Standard Drinks/Week Comments Never 0 (1 standard drink = 0.6 oz pur e alcohol) Sex and Gender Information Value Date Recorded Sex Assigned at Not on file Legal Sex Male 2:48 PM EDT Gender Identity Not on file Sexual Orientation Not on file Last Filed Vital Signs Vital Sign Reading Time Taken Comments Blood Pressure 160/75 09/09/2024 3:17 PM EDT Pulse 64 09/09/2024 3:17 PM EDT Temperature - - Respiratory Rate - - Oxygen Saturation 98% 08/15/2023 3:08 PM EST Inhaled Oxygen Concentration - - Weight 102 kg (225 lb) 09/09/2024 3:17 PM EDT Height - - Body Mass Index - - Plan of Treatment Upcoming Encounters Date Type Department Care Team (Late st Contact Info) Description 03/12/2025 Orders Only [facility] [address] [phone] Mukul Godinez MD [address] [place] [phone] Isolated proteinuria 09/13/2025 2:15 PM EDT Office Visit [facility] [address] [phone] Mukul Godinez MD [facility] [address] [phone] Health Maintenance Due Date Last Done Comments Colorectal Cancer Screening: Annual FOBT 2012 Colorectal Cancer Screening: Colonoscopy 2012 Colorectal Cancer Screening: Sigmoidoscopy 2012 Pneumococcal Vaccine: 50+ Ye ars (2 of 2 - PPSV23, PCV20, or PCV21) 02/16/2016 12/22/2015 Hepatitis B Vaccine (1 of 3 - Risk 3-dose series) 2023 Diabetes: Ophthalmology Exam 08/17/2024 Diabetes: Pedal Pulse Checked 08/17/2024 Diabetes: Sensory Foot Exam 08/17/2024 Diabetes: Visual Foot Exam 08/17/2024 Influenza Vaccine (#1) 2025 , 03/12/2023, 07/23/2022, Additional history exists Diabetes: Hemoglobin A1C 04/13/2025 01/11/2025, 07/02 Pneumococcal Vaccine: Peds ( 0 to 5 Years) and At-Risk Patients (6 to 49 Years) Discontinued 12/22/2015 Insurance Medicare Medicaid [place] Care Teams [employer] [facility] Relationship Specialty Start Date End Date True Madison MD PCP - General Internal Medicine 02/02/21
--- NOTE | 2025-03-08 08:34 | A.OFFVIS_ITS ---
Intake Visit Reasons: MCI HPI Comments Details: The patient is a 59-year-old male presenting with memory loss. He explains the memory issues began about two months ago and were noticeable enough that he decided to mention it to a friend. These memory lapses have caused him to take moments to ensure he communicates effectively when speaking. He has a history of undergoing an MRI a few weeks back at [facility], which revealed normal results. The patient's medical history is notable for coronary artery disease, considering he has experienced multiple myocardial infarctions, impacting his employment capabilities. Furthermore, he endures allergic rhinitis symptoms, possibly contributing to intermittent sinus discomfort. Regarding his lifestyle, the patient primarily engages in playing video games, leading a relatively sedentary life. He reports no alcohol consumption but has habitual marijuana use, estimating around three to four joints per day. Concerning his blood pressure, he manages it through prescribed medication, with admixture experiences of controlled and slightly exacerbated readings. Daytime sleepiness sometimes occurs but without mention of significant sleep issues overall. Review of Systems Const Details: - Neurological: Reports memory loss. Denies any recent head trauma. - Cardiovascular: Denies chest pain. Reports history of heart attacks. - Respiratory: Denies respiratory distress. - Gastrointestinal: Denies any significant concerns reported. - Musculoskeletal: Denies new musculoskeletal pain. Reports history of falls. - Psychiatric: Denies current mood disorders. - Allergy/Immunology: Reports seasonal allergies. - Substance Use: Reports daily marijuana use. Denies alcohol consumption. Physical Exam Neuro Other: Mental Status: Alert and oriented to person, place, and time. Normal attention. Normal spontaneous speech, fluency, and comprehension. Cranial Nerves: CN II: Visual sparks full to confrontation, visual acuity intact. CN III, IV, : Pupils equal, round, reactive to light and accommodation. Extraocular movements are normal. CN V: Facial sensation is normal. CN VII: Facial movements symmetrical. CN VIII: Hearing intact to bedside conversation is normal. CN IX, X: Palate elevates symmetrically. CN XI: Shoulder shrug and head turn symmetrical. CN XII: Tongue midline without atrophy or fasciculations. Cautious gait. Extrapyramidal: Full facial expressions and blinking. No rigidity. Movements are appropriate with no tremor or abnormality. Speech: Normal; no dysarthria or tremor. Assessment & Plan Assessment & Plan (1) MCI (mild cognitive impairment): Comment: MRI brain WO at [facility] in Jan 2025: Minimal MVD, gorman sinusitis type findings Labs at [facility] in 2024: B12 569, Folate 11.7, RPR neg, ESR 11, CMP ok, LFTs ok, TSH 2.09 Code(s): G31.84 - Mild cognitive impairment of uncertain or unknown etiology Category: Medical Plan Impression: a: Mild cognitive impairment of amnestic type b: Mild chronic microvascular ischemic cerebral changes c: Marijuana use d: Chronic multifactorial disability Rec: a: Walk a mile a day b: Minimize marijuana use c: No alcohol d: Try to lose some weight e: Baby aspirin daily Coding Level of Care Code New Pt Level 4 (94443) Diagnoses MCI (mild cognitive impairment) G31.84
== END 2025-03-08 08:50 | disposition home or self-care (01) ==
LOC: HO.HSM 07:53
PROVIDERS: PCP Internal Medicine; Visit Provider Psychiatry & Neurology Neurology
DX: G31.84 Mild cognitive impairment of uncertain or unknown etiology (principal)
CPT/HCPCS: 99204

== ENCOUNTER → 2025-03-08 07:52 | Outpatient (BNVA) | payer MEDICARE, MEDICAID, SELFPAY | PROVIDERS: PCP Internal Medicine; Visit Provider Psychiatry & Neurology Neurology | DX: G31.84 Mild cognitive impairment of uncertain or unknown etiology (principal) | CPT/HCPCS: 99202 ==

== ENCOUNTER 2025-03-12 11:08 | Outpatient (REF) | payer MEDICARE, MEDICAID, SELFPAY ==
--- NOTE | ~2025-03-12 | XR_ITS ---
EXAMINATION: XR BILATERAL HIPS WITH AP PELVIS CLINICAL INFORMATION: M25.551 - Pain in right hip COMPARISON: None available. TECHNIQUE: AP view pelvis. AP and oblique views both hips. FINDINGS: No acute cortical disruption or malalignment in either hip. Mild sclerosis along the articular surface of the acetabulum, symphysis.. There is preservation of the joint spaces in the coxofemoral joints. Marginal osteophyte formation at L4-5 and L5-S1. Facet joint hypertrophy at L5-S1. No lytic or blastic lesions. XR/XR hip BI w PEL1V IMPRESSION: No acute fracture or dislocation. Mild degenerative changes. Electronically signed by: Henry Chapin MD 03/12/2025 01:05 PM EDT
--- NOTE | ~2025-03-12 | XR_ITS ---
EXAMINATION: XR LUMBOSACRAL SPINE WITH OBLIQUES CLINICAL INFORMATION: M54.50 - Low back pain, unspecified COMPARISON: None available. TECHNIQUE: AP oblique and lateral views FINDINGS: Multilevel marginal osteophyte formation and endplate sclerosis throughout the axial skeleton. Sclerotic superior endplate compression deformity representing 40% volume loss at L1, similar findings representing 20-30% volume loss at L2 and L5. Levoconvex curvature of the lumbar spine. Multilevel facet joint hypertrophy. No lytic or blastic lesions. Vascular calcifications, aorta and iliac arteries. XR/XR lumbar spine 4V min IMPRESSION: Multilevel thoracolumbar spondylosis. Subacute to old superior endplate compression fracture deformities at L1, to a lesser extent L2 and L5. Electronically signed by: Henry Chapin MD 03/12/2025 01:12 PM EDT
== END 2025-03-12 11:09 | disposition home or self-care (01) ==
LOC: HO.XRAY 11:08
PROVIDERS: PCP Internal Medicine; Referring Provider Nurse Practitioner Family; Visit Provider Nurse Practitioner Family
DX: M47.817 Spondylosis without myelopathy or radiculopathy, lumbosacral region (principal); G89.29 Other chronic pain; M54.50 Low back pain, unspecified; M25.551 Pain in right hip; M25.552 Pain in left hip; E11.40 Type 2 diabetes mellitus with diabetic neuropathy, unspecified; M79.672 Pain in left foot; Z79.899 Other long term (current) drug therapy
CPT/HCPCS: 72110; 73521; 99202

== ENCOUNTER 2025-03-12 11:08 | Outpatient (AMB) | payer MEDICARE, MEDICAID, SELFPAY ==
--- NOTE | 2025-03-12 11:12 | MHC.OFFVIS ---
Vital Signs 03/12/25 11:19 Height 5 ft 7 in Weight 230 lb 6 oz BMI 36.1 BP 174/77 H Blood Pressure Location Rt brachial Position Sitting Pulse 65 Pulse Source Pulse Oximeter Pulse Oximetry (%) 96 Oxygen Delivery Method Room Air Intake Visit Reasons: Chronic Bilateral Low Back Pain Intake Note: Pain today 02/07 Baggage Checker Required: No Accompanied by: Self / Same As Patient Allergies Penicillins Allergy (Unknown, Verified 03/12/25 11:18) Unknown HPI Comments Details: The patient is a 59-year-old male presenting with chronic pain. The pain began approximately 20 years ago following a fall from a five-story building, resulting in multiple fractures in the lower extremities. The patient underwent multiple surgeries, including ankle fusion, which was complicated by rejection of hip bone grafts and broken metal implants. The patient reports severe diabetic neuropathy characterized by numbness and burning in both feet in glove distribution, which has been persistent and affects daily activities. The neuropathy is exacerbated by poorly controlled diabetes, with an unknown recent HbA1c level, but historically high values. The patient has experienced memory impairment, described as recent and mild, which may be related to poorly controlled diabetes. The patient has a family history of diabetes, with his mother also affected. He has been evaluated by Neurology, Dr. Otoole on 03/08/25 for memory concerns. The patient has been using gabapentin 300 mg multiple times a day for pain management, but reports limited relief, particularly for numbness. Additional treatments include Voltaren gel and lidocaine patches, though application is limited at times by pain upon touching the feet. The patient has not undergone an EMG study to assess type and extent of neuropathy but has had multiple MRIs of the back and recent left foot xray, these reports are not available. The patient uses a walker at home due to severe pain in the legs and back, which is exacerbated by physical activity. Patient lives a sedentary lifestyle with limited mobility due to pain, playing video games. He is a former tobacco user, denies alcohol consumption, admits to marijuana use. - Onset: Began 20 years ago after a fall from a five-story building - Quality: Pulsing, throbbing, pounding, tingling, numbness, burning, heavy, sore, aching - Location: Primarily in the legs, feet and back - Radiation: Pain radiates from the back to the groin and knees - Exacerbating factors: Physical activity, walking, touching the feet - Relieving factors: None effectively noted - Interference: Affects daily activities, functioning, and sleep - Affect: Pain causes fatigue and impacts daily activities - Analgesia: Currently taking gabapentin 300 mg multiple times a day with limited relief - Adverse Effects: Painful to touch feet, limiting application of topical treatments - Activities of Daily Living: Pain interferes with functioning and sleep - Aberrant Drug Related Behaviors: None reported Oswestry Low Back Pain Disability Score=37 [facility] Medical History (Updated 03/12/25 @ 12:16 by WOLFGANG Howard) Exostosis of bone of foot Dermatophytosis of nail Pain in toe of left foot Pain in toe of right foot Recurrent and persistent hematuria with other morphologic changes Sacroiliitis Tobacco use Proteinuria History of hepatitis C Finger laceration involving tendon Memory change Enchondroma Digital nerve laceration, finger DDD (degenerative disc disease), lumbar Chronic bronchitis Chronic bilateral low back pain with right-sided sciatica Chronic pain CAD (coronary artery disease) Ankle pain Memory loss Kidney disease HLD (hyperlipidemia) Hypertension Mild acid reflux Heart disease Diabetes mellitus Cirrhosis of liver COPD (chronic obstructive pulmonary disease) Surgical History (Updated 03/12/25 @ 12:16 by WOLFGANG Howard) History of ankle fusion H/O heart surgery H/O brain surgery Family History (Updated 03/08/25 @ 09:01 by Callie Kohler [facility]) Mother Diabetes mellitus Sister Diabetes mellitus Social History (Updated 03/12/25 @ 11:20 by Andra Toribio) Alcohol intake: former Year quit: 2001 Patient Tobacco Use Status: Current someday Tobacco user Tobacco use type: Cigarette Substance Use Type: Marijuana Sexual orientation: Straight/Heterosexual Gender identity: Male Review of Systems Const Details: - Musculoskeletal: Reports chronic pain in legs and back, radiating to groin and knees - Neurological: Reports numbness and burning in feet, memory impairment - Endocrine: Reports poorly controlled diabetes, unsure of recent HbA1c All systems reviewed & are unremarkable except as noted in HPI and below Physical Exam Vital Signs: Last Vital Signs Pulse 65 03/12/25 11:19 BP 174/77 H 03/12/25 11:19 Pulse Ox 96 03/12/25 11:19 Oxygen Delivery Method Room Air 03/12/25 11:19 BMI result Body Mass Index 36.1 General: Appears afebrile. Alert and oriented. Mood and affect appropriate. Follows and participates in conversation appropriately. Respiratory effort is unlabored. No cough. Able to transition from sit to stand unassisted. Ambulates with antalgic gait with mild limping, no assistive devices. General: Yes no CVA tenderness Back/Spine/Pelvis Other: Limited lumbar ROM due to pain. Lumbar extension and flexion reproduces moderate pain. Demonstrates 5/5 strength of quadriceps bilaterally as well as flexion/dorsiflexion of bilateral feet against resistance. 2+ pedal pulses bilaterally. Straight leg rise with dorsiflexion negative bilaterally. Diminished patellar bilaterally, achilles reflexes not tested due to pain. Facet loading test positive bilaterally. Sirena sign, Pelvic compression and Stinchfield tests are negative bilaterally. Mild groin pain with I/E hip rotations. Valsalva maneuver negative. Back: no CVA tenderness Cervical Spine: cervical ROM normal, loss of normal cervical lordosis, cervical muscular tenderness and No Cervical spine tenderness Thoracic/Lumbar Spine: thoracic and lumbar spine normal to inspection, Thoracic/lumbar spine scar(s), Lasegue's sign negative, straight leg raise negative bilaterally, pain with thoraco-lumbar ROM, paraspinal muscle tenderness, thoraco-lumbar ROM limited, No thoracic spinal tenderness and lumbar spinal tenderness at L4 and at L5 Sacroiliac joints: bilaterally nontender Extrem Other: There is a decreased sensation over the soles of the feet and toes. Reports numbness, burning, tingling and bilateral foot pain, worse at night time. No breaks in the skin. No warmth. Decreased left ankle ROM due to pain and prior ankle fusion. Swelling around ankle, lateral aspects. +2 pedal pulses bilaterally. Normal capillary refill. Results Reviewed Results Reviewed: MR SPINE LUMBAR without CONTRAST 08/16/23 INDICATION: Lumbar region intervertebral disc displacement and radiculopathy. Lumbar region spinal stenosis with neurogenic claudication. Additional History: Hypertension, liver and kidney problems . TECHNIQUE: Unenhanced multiplanar, multisequence MR imaging of the lumbar spine. COMPARISON: None Available. FINDINGS: Normal lumbar alignment is demonstrated. There are old compression deformities of the superior endplates of L5 L2 and L1 of indeterminate age likely chronic. Vertebral heights are otherwise well maintained. Bone marrow signal is within normal limits, and no suspicious osseous lesion is identified. Conus medullaris is unremarkable. Paraspinal soft tissues and visualized portions of the abdomen and pelvis are unremarkable. L5-S1: There is no significant disc herniation or protrusion. No central canal or neural foraminal stenosis is demonstrated. L4-5: There is a broad-based disc bulge with ligament flavum hypertrophy and uncovertebral joint hypertrophy which in combination create mild central canal stenosis. No exiting nerve root encroachment found. There is a mild left-sided disc osteophyte complex causing left neuroforaminal stenosis without nerve root encroachment. L3-4: There is intervertebral disc space narrowing. There is a broad-based disc bulge with ligament flavum hypertrophy and uncovertebral joint hypertrophy which in combination create mild central canal stenosis. No exiting nerve root encroachment found. L2-3: There is intervertebral disc space narrowing. There is a broad-based disc bulge with ligament flavum hypertrophy and uncovertebral joint hypertrophy which in combination create mild central canal stenosis. No exiting nerve root encroachment found. L1-2: There is a mild broad-based disc bulge with ligamentum flavum hypertrophy without clinically significant central canal or neuroforaminal stenosis. T11-12: There is a left paracentral disc bulge effacing the ventral aspect of the thecal sac without abutting the thoracic cord causing mild central canal stenosis. IMPRESSION: 1.Multilevel lumbar spondylosis. 2.Mild central canal stenosis at L2-3, L3-4, and L4-5. 3.Mild central canal stenosis at T11-12 and T12-L1. 4.No exiting nerve root encroachment. 5.Old superior endplate compression deformities of L5 L2 and L1 of indeterminate age likely chronic. XR HIPS, BILATERAL AND PELVIS 12/04/21 CLINICAL INFORMATION: Patient fell from a height years ago and has had pain since. COMPARISON: None. TECHNIQUE: Single view pelvis with 2 additional views each hip. FINDINGS: Hip joints are well maintained. No fractures are seen. Some minimal degenerative changes are noted with some supra-acetabular sclerosis without significant osteophytes. Minimal degenerative changes are seen at the pubic symphysis. IMPRESSION: No significant abnormality is felt to be present. There is some minimal supra-acetabular sclerosis without osteophytes. Joint spaces are well preserved. CT SCAN OF THE LEFT ANKLE WITH 2D RECONSTRUCTIONS 11/21/2012 HISTORY: Status post distal tibial fracture and ORIF status post ankle fusion. Question nonunion left distal tibia. Question nonunion of the ankle. Assess ankle and subtalar joint. TECHNIQUE: Proton density and T2 SPIR axial, T1 and STIR sagittal, and T2 SPIR coronal images were obtained. FINDINGS: The patient is status post previous ORIF of distal tibial fracture with a plate and screws seen in the distal tibia and the talus causing significant artifact. There is severe deformity of the distal tibia consistent with a history of prior fracture and ORIF. There is a prominent lucent cleft seen in the distal tibia most pronounced anteriorly. This extends to the tibiotalar joint. It is wide at the level of the joint measuring approximately 16 mm in diameter. There is probably some fusion of the distal tibia posteriorly at this level however anteriorly and at the level approximately 1.8 cm above the tibiotalar joint there appears to be a focus of nonunion. There is fracture deformity of the distal fibula. There is foreshortening of the tibia relative to the fibula. There is marked joint space narrowing of the tibiotalar joint however the joint space remains clearly evident consistent with nonunion of a fusion. There is a horizontally screw seen traversing the talus which appears to be attached to the catherine in the distal tibia which forms an L-shape in this location. There is evidence for partial bony fusion of the talus and calcaneus posteriorly. IMPRESSION: 1. There is severe deformity of the distal tibia consistent with a history of previous fracture and ORIF. There is a prominent lucent cleft in the distal tibia which extends to the articular surface. At one point it appears to involve the full thickness of the tibia consistent with nonunion. There is also marked foreshortening of the tibia at the fracture site relative to the fibula. 2. 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 There is a partial bony union of the talocalcaneal joint posteriorly. Assessment & Plan Assessment & Plan (1) Chronic low back pain: Code(s): M54.50 - Low back pain, unspecified; G89.29 - Other chronic pain Category: Medical (2) Bilateral hip pain: Code(s): M25.551 - Pain in right hip; M25.552 - Pain in left hip Category: Medical (3) Lumbosacral spondylosis: Code(s): M47.817 - Spondylosis without myelopathy or radiculopathy, lumbosacral region Category: Medical (4) Chronic painful diabetic neuropathy: Code(s): E11.40 - Type 2 diabetes mellitus with diabetic neuropathy, unspecified Category: Medical (5) Left foot pain: Code(s): M79.672 - Pain in left foot Category: Medical Plan The management plan includes obtaining the patient's recent HbA1c from PCP office, as this is critical for proceeding with potential interventions. The patient will be considered for Qutenza 8% capsaicin application for chronic painful diabetic neuropathy. For chronic pain management, options include spinal cord stimulation trial, contingent upon psychological evaluation and controlled blood glucose levels. The patient will be referred for a psychological evaluation to assess suitability for implantable devices, provided the HbA1c is within acceptable limits. The patient is advised to maintain a diabetic diet and medication regime and avoid high-carbohydrate foods and sodas to improve blood sugar control. All questions and concerns have been answered and patient agreed with the treatment plan. Follow up for xray results and sooner as needed. Patient was informed and verbally consented to the use of an ambient scribe for clinic note documentation during this visit. Orders: Orders XR lumbar spine 4V min Today G89.29 - Other chronic pain, M54.50 - Low back pain, unspecified XR hip BI w PEL1V Today M25.551 - Pain in right hip, M25.552 - Pain in left hip Coding Level of Care Code New Pt Level 4 (69629) Diagnoses Chronic low back pain M54.50; G89.29 Bilateral hip pain M25.551; M25.552 Lumbosacral spondylosis M47.817 Chronic painful diabetic neuropathy E11.40 Left foot pain M79.672
[2025-03-12 11:19] VITALS: BP 174/77; PULSE 65; O2SAT 96; BMI 36.1
--- OUTSIDE RECORDS SUMMARY | 2025-03-12 13:05 | XMS_ITS | Clinical Summary ---
Author Organization [address] [facility] Address [address] [place] [address] Phone Care Team Providers Care Restaurant Team Member Name Role Phone True Madison MD Primary Care Provider [phone] Allergies Active Allergy Reactions Criticality Noted Date [...] tablet 3 12/25/19 25 Active blood-glucose meter [facility] OneTouch Meter, Use daily or as directed [...] Date Diagnosed Date Sacroiliitis, not elsewhere classified ([facility] V24) 06/23/2024 Assessment & Plan (06/23/2024 [...] Severe obesity (BMI 35.0-39. 9) with comorbidity ([facility] V24, [facility] V28) 04/03/2024 Tobacco use 04/03/2024 Diabetes mellitus ([facility] V24, [facility] V28) 10/2023 Chronic pain 02/03/2024 Uncontrolled type 2 diabetes mellitus with hyperglycemia ([facility] V24, [facility] V28) 08/27/2023 Assessment & Plan (07/07/2024 [...] aturia with other morphologic changes 04/12/2021 Cirrhosis ([facility] V24, [facility] V28) 04/22/2017 DDD (degenerative disc disease), lumbar 05/03/[address] scan, chest 11/25/2014 Overview (04/03/2024): LLL pl thickening w Pl Ca++ Chronic bronchitis ([facility] V24, [facility] V28) Chronic bilateral low back pain [...] Care Team Description 02/21/2025 Telephone Adult Medicine [id number] [place] [address] Lali Looney NP 02/16/2025 6:30 PM EDT - 02/16/2025 11:59 PM EDT Hospital Encounter [facility] MRI [address] [place] [phone] MCI (mild cognitive impairment); Memory change Discharge Disposition: Home or Self Care 02/16/2025 1:15 PM EDT Office Visit Orthopedic Surgery - [place] [address] [facility] [address] [place] [phone] Zen Balderas DPM Exostosis of bone of foot (Primary Dx); Diabetic mononeuropathy simplex ([facility] V24, [facility] V28); Type II diabetes mellitus with peripheral circulatory disorder ([facility] V24, [facility] V28); Dermatophytosis of nail; Pain in toe of left foot; Pain in toe of right foot 02/15/2025 7:00 AM EDT Ancillary Procedure [facility] [address] [place] [phone] Chest pain, unspecified type; Coronary artery disease due to lipid rich plaque 02/11/2025 2:40 PM EDT Office Visit [facility] - [facility] [address] [facility] [address] [place] [phone] Arlin De Dios NP Chest pain, unspecified type (Primary Dx); Coronary artery disease due to lipid rich plaque; Snoring; Primary hypertension; Mixed hyperlipidemia; Pulmonary valve stenosis, unspecified etiology 02/11/2025 8:45 AM EDT Office Visit Adult Medicine [address] [phone] Lali Looney NP MCI (mild cognitive impairment) (Primary Dx); Memory change; DM (diabetes mellitus) type 2, uncontrolled, with ketoacidosis ([facility] V24, [facility] V28); Chronic bilateral low back pain with right-sided sciatica 02/11/2025 Telephone Adult Medicine [facility] [address] [place] [phone] True Madison MD 01/19/2025 Telephone Pulmonolgy [facility] [address] [facility] [address] [place] [phone] Jing Smith NP 01/18/2025 Telephone Adult Medicine [address] [phone] Lali Looney NP 01/11/2025 7:30 AM EDT Office Visit Adult Medicine [address] [phone] Lali Looney, SONIA Chronic bilateral low back [...] prostate 01/05/2025 1:16 PM EDT Anesthesia Event [facility] Endoscopy [address] [place] [phone] Knvg Joseph MD 01/05/2025 11:31 AM EDT - 01/05/2025 11:59 PM EDT Hospital Encounter [facility] Endoscopy [address] [place] [phone] Shilpa Rios MD Burton, Heather, CRNA Gomes, Sheldon B, MD Colon cancer screening Discharge Disposition: Home or Self Care 12/28/2024 2:20 PM EDT [facility] [address] [facility] [address] [place] [phone] Jing Smith, SONIA Chronic bronchitis, unspecified chronic [...] Info) Description 05/03/2025 1:00 PM EST Appointment [facility] Ultrasound [address] [place] [address] 05/05/2025 1:15 PM EST Office Visit Orthopedic Surgery - [place] [address] [place] [phone] Zen Balderas DPLyla 175 [facility] [address] [place] [phone] 06/21/2025 1:15 PM EST Office Visit Adult Medicine [facility] [address] [place] [address] True Madison MD [address] [place] [address] 06/29/2025 2:20 PM EST [facility] [address] [place] [phone] Jing Smith, SONIA [address] [place] [phone] Health Maintenance Due Date Last Done Comments [...] this topic Medical Devices Implanted Type Area Elevator Worker Device Identifier Shelf Expiration Date Model / [...] Signed Date: 02/18/2025 14:26 ET Workstation ID: [id number] Transcribed By: Self Edit Transcribed Date: 02/18/2025 [...] Signed Date: 02/18/2025 14:26 ET Workstation ID: [id number] Transcribed By: Self Edit Transcribed Date: 02/18/2025 14:17 ET Lali Looney NP IMG MRI PROCEDURES Final Res ult * (ABNORMAL) TRANSTHORACIC ECHOCARDIOGRAM (TTE) COMPLETE (02/15/2025 7:50 AM EDT) Left Atrium Minor Linton 6.1 cm CV PACS Left Atrium Major [place] 5.9 cm CV PACS LA Area Sys [...] ECG 12 lead (02/12/2025 3:39 PM EDT) Ventricular Rate ECG 55 BPM GEMUSE Atrial Rate 55 BPM GEMUSE P-R Interval 158 ms GEMUSE QRS Duration 88 ms GEMUSE Q-T Interval 402 ms GEMUSE QTc 384 ms GEMUSE P Wave Linton 62 degrees GEMUSE R Linton 55 degrees GEMUSE T [place] 29 degrees GEMUSE ECG Interpretation Sinus bradycardia Nonspecific ST abnormality When compared with ECG of 13-FEB-2024 11:02, heart rate has decreased Confirmed by MARCY RICHTER ([id number]) on 03/09/2025 5:09:21 PM GEMUSE 02/11/2025 2:56 PM EDT 03/09/2025 5:09 PM EDT us Arlin De Dios REFRIGERATION ENGINEERING TEACHER ECG ORDERABLES Edited Result - Final GEMUSE * (ABNORMAL) Urinalysis with reflex microscopic and culture (02/11/2025 10:07 AM EDT) Specific [place] Urine 1.014 1.003 - 1.030 LAB URINALYSIS - AUTOMATED METHOD 02/11/2025 12:04 PM [facility] pH, Urine 5.5 5.0 - 8.0 pH LAB URINALYSIS - AUTOMATED METHOD 02/11/2025 12:04 PM [facility] Leukocytes, Urine Negative Negative LAB URINALYSIS - AUTOMATED METHOD 02/11/2025 12:04 PM [facility] Nitrite, Urine Negative Negative LAB URINALYSIS - AUTOMATED METHOD 02/11/2025 12:04 PM [facility] Protein, Urine 30(A) <=Trace mg/dL LAB URINALYSIS - AUTOMATED METHOD 02/11/2025 12:04 PM [facility] Glucose, Urine Negative Negative mg/dL LAB URINALYSIS - AUTOMATED METHOD 02/11/2025 12:04 PM [facility] Ketones, Urine Negative Negative mg/dL LAB URINALYSIS - AUTOMATED METHOD 02/11/2025 12:04 PM [facility] Urobilinogen, Urine 0.2 0.2 - 1.0 mg/dL LAB URINALYSIS - AUTOMATED METHOD 02/11/2025 12:04 PM [facility] Bilirubin, Urine Negative Negative LAB URINALYSIS - AUTOMATED METHOD 02/11/2025 12:04 PM [facility] Blood, Urine Negative Negative LAB URINALYSIS - AUTOMATED METHOD 02/11/2025 12:04 PM [facility] RBC, Urine 1.1 0 - 4 /HPF LAB URINALYSIS - AUTOMATED METHOD 02/11/2025 12:04 PM EDT [facility] WBC, Urine 0.7 0 - 4 /HPF LAB URINALYSIS - AUTOMATED METHOD 02/11/2025 12:04 PM EDT [facility] Squamous Epithelial, Urine 6 0 - 60 /LPF LAB URINALYSIS - AUTOMATED METHOD 02/11/2025 12:04 PM EDT [facility] Bacteria, Urine Negative Negative /HPF LAB URINALYSIS - AUTOMATED METHOD 02/11/2025 12:04 PM EDT [facility] Hyaline Casts, Urine 0.0 0 - 3 /LPF LAB URINALYSIS - AUTOMATED METHOD 02/11/2025 12:04 PM EDT [facility] Urine Urine specimen obtained by clean catch procedure / Unknown Non-blood Collection / Unknown 02/11/2025 10:07 AM EDT 02/11/2025 10:07 AM EDT Lali Looney REFRIGERATION ENGINEERING TEACHER LAB URINE ORDERABLES Final R esult Performing Organization Address City/[facility]/ZIP Co de Phone Number [facility] [address] [place] [address], [place] [phone] * Treponema pallidum antibody with reflex to RPR and particle agglutination (02/11/2025 10:07 AM EDT) T. Pallidum Antibodies Negative Negative LAB CHEMISTRY METHOD 02/11/2025 2:49 PM EDT [facility] Blood Venous blood specimen / Unknown Venipuncture / Unknown 02/11/2025 10:07 AM EDT 02/11/2025 10:07 AM EDT Lali Looney REFRIGERATION ENGINEERING TEACHER LAB BLOOD ORDERABLES Final R esult [facility] [address] [place] [address], * Dahl urine culture tube (02/11/2025 10:07 AM EDT) Extra Tube Hold for add-ons. 02/11/2025 12:01 PM EDT [facility] Comment:Auto resulted. Urine Urine specimen obtained by clean catch procedure / Unknown Non-blood Collection / Unknown 02/11/2025 10:07 AM EDT 02/11/2025 10:07 AM EDT Lali Looney REFRIGERATION ENGINEERING TEACHER LAB URINE ORDERABLES Final R esult [facility] [address] [place] [address], * Sedimentation rate (02/11/2025 10:07 AM EDT) Pathologist [facility] Sed Rate 11 0 - 20 mm/hr LAB HEMETOLOGY METHOD 02/11/2025 12:02 PM EDT [facility] Blood Venous blood specimen / Unknown Venipuncture / Unknown 02/11/2025 10:07 AM EDT 02/11/2025 10:07 AM EDT Lali Looney REFRIGERATION ENGINEERING TEACHER LAB BLOOD ORDERABLES Final R esult [facility] [address] [place] [address], [place] [phone] * Folate (02/11/2025 10:07 AM EDT) Folate 11.7 2.8 - 17.0 ng/ml LAB CHEMISTRY METHOD 02/11/2025 2:00 PM EDT [facility] Blood Venous blood specimen / Unknown Venipuncture / Unknown 02/11/2025 10:07 AM EDT 02/11/2025 10:07 AM EDT Lali Looney REFRIGERATION ENGINEERING TEACHER LAB BLOOD ORDERABLES Final R esult [facility] [address] [place] [address], [place] [phone] * Vitamin B12 (02/11/2025 10:07 AM EDT) [facility] Vitamin B-12 569 250 - 900 pcg/mL LAB CHEMISTRY METHOD 02/11/2025 2:00 PM EDT [facility] Blood Venous blood specimen / Unknown Venipuncture / Unknown 02/11/2025 10:07 AM EDT 02/11/2025 10:07 AM EDT Lali Looney REFRIGERATION ENGINEERING TEACHER LAB BLOOD ORDERABLES Final R esult Performing Organization Address City/[facility]/ZIP Co de Phone Number [facility] [address] [place] [address], [place] [phone] * (ABNORMAL) Comprehensive metabolic panel (02/11/2025 10:07 AM EDT) Only the most recent of3 resultswithin the time period is included. [facility] Sodium 136 133 - 145 mmol/L LAB CHEMISTRY METHOD 02/11/2025 2:00 PM EDT [facility] Potassium 4.6 3.5 - 5.5 mmol/L LAB CHEMISTRY METHOD 02/11/2025 2:00 PM T [facility] Chloride 105 96 - 110 mmol/L LAB CHEMISTRY METHOD 02/11/2025 2:00 PM [facility] CO2 26 21 - 32 mmol/L LAB CHEMISTRY METHOD 02/11/2025 2:00 PM [facility] Anion Gap 5 3 - 11 LAB CHEMISTRY METHOD 02/11/2025 2:00 PM [facility] Glucose 120(H) 70 - 100 mg/dL LAB CHEMISTRY METHOD 02/11/2025 2:00 PM [facility] BUN 15 5 - 25 mg/dL LAB CHEMISTRY METHOD 02/11/2025 2:00 PM [facility] Creatinine 0.91 0.70 - 1.30 mg/dL LAB CHEMISTRY METHOD 02/11/2025 2:00 PM [facility] eGFR 96 >=60 mL/min/1. 73m2 LAB CHEMISTRY METHOD 02/11/2025 2:00 PM [facility] Comment:Calculation based on the Chronic Kidney Disease Epidemiology Collaboration (CKD-EPI) equation refit without adjustment for race. BUN/Creatinine Ratio 16.5 LAB CHEMISTRY METHOD 02/11/2025 2:00 PM [facility] Calcium 9.2 8.5 - 10.5 mg/dL LAB CHEMISTRY METHOD 02/11/2025 2:00 PM [facility] AST (SGOT) 18 10 - 42 unit/L LAB CHEMISTRY METHOD 02/11/2025 2:00 PM [facility] ALT (SGPT) 26 10 - 60 unit/L LAB CHEMISTRY METHOD 02/11/2025 2:00 PM [facility] Alkaline Phosphatase 111 42 - 121 unit/L LAB CHEMISTRY METHOD 02/11/2025 2:00 PM [facility] Total Protein 7.2 6.0 - 8.0 g/dL LAB CHEMISTRY METHOD 02/11/2025 2:00 PM [facility] Albumin 4.0 3.2 - 5.0 g/dL LAB CHEMISTRY METHOD 02/11/2025 2:00 PM [facility] Total Bilirubin 0.4 0.0 - 1.4 mg/dL LAB CHEMISTRY METHOD 02/11/2025 2:00 PM [facility] Blood Venous blood specimen / Unknown Venipuncture / Unknown 02/11/2025 10:07 AM EDT 02/11/2025 10:07 AM EDT Lali Looney REFRIGERATION ENGINEERING TEACHER LAB BLOOD ORDERABLES Final R esult [facility] [address] [place] [address], [place] [phone] * POC glucose manually resulted (02/11/2025 9:45 AM EDT) [facility] Glucose POC 163 mg/dL Blood Capillary blood specimen / Unknown 02/11/2025 9:45 AM EDT Lali Looney REFRIGERATION ENGINEERING TEACHER POINT OF CARE TEST ENTER/DALILA T ORDERABLES Final Result * Prostate specific antigen screen (01/11/2025 11:01 AM EDT) [facility] PSA 0.55 0.00 - 4.00 ng/mL LAB CHEMISTRY METHOD 01/11/2025 8:06 PM EDT [facility] Blood Venous blood specimen / Unknown Venipuncture / Unknown 01/11/2025 11:01 AM EDT 01/11/2025 11:01 AM EDT Narrative [facility] - 01/11/2025 8:06 PM EDT The Siemens Advia Centaur Chemiluminescent Immunoassay is used. Results obtained with different assay methods or kits cannot be used interchangeably. Results cannot be interpreted as absolute evidence of the presence or absence of malignant disease. Lali Looney REFRIGERATION ENGINEERING TEACHER LAB BLOOD ORDERABLES Final R esult [facility] [address] [place] [address], [place] [phone] * (ABNORMAL) Hemoglobin A1c (01/11/2025 11:01 AM EDT) [facility] Hemoglobin A1C 6.5(H) <6.5 % LAB CHEMISTRY METHOD 01/11/2025 3:17 PM EDT [facility] Mean Bld Glu Estim. 140 mg/dL LAB CHEMISTRY METHOD 01/11/2025 3:17 PM EDT [facility] Blood Venous blood specimen / Unknown Venipuncture / Unknown 01/11/2025 11:01 AM EDT 01/11/2025 11:01 AM EDT us Rigoberto RINALDI LAB BLOOD ORDERABLES Fin al Result [facility] [address] [place] [address], [place] [phone] * COLONOSCOPY Anesthesia - MAC; [facility] ENDOSCOPY (01/05/2025 1:33 PM EDT) Anatomical Region Laterality Modality Endoscopy 01/05/2025 1:20 PM EDT Impressions 01/05/2025 1:33 PM EDT - Internal hemorrhoids. - The examination was otherwise normal on direct and retroflexion views. - No specimens collected. Recommendation: - Discharge patient to home. - Repeat colonoscopy in 10 years for screening purposes. Narrative 01/05/2025 1:33 PM EDT [facility] GI Patient Name: Malik Llanos Procedure Date: [...] verified by the physician, the nurse, the humanities department chair and the tax map technician in the pre-procedure area in the [...] malignant neoplasm of colon CPT copyright 2020 [employer]. All rights reserved. The codes documented in this report are preliminary and upon medical accounts receivable specialist review may be revised to meet current compliance requirements. Shilpa Rios MD 01/05/2025 1:33:48 PM This report has been signed electronically.Shilpa Rios MD Number of Addenda: 0 Note Initiated On: 01/05/2025 1:20 PM Scope Withdrawal Time: 0 hours 6 minutes 48 seconds Scope In: 1:23:56 PM Scope Out: 1:32:41 PM Endoscopy Department at [facility] - [address] [place] [phone] Procedure Note Shilpa Rios MD - 01/05/2025 [facility] GI Patient Name: Malik Llanos Procedure Date: [...] the physician, the nurse, theanesthetist and the tax map technician in the pre-procedure area in the [...] for malignantneoplasm of colon CPT copyright 2020 [employer]. All rights reserved. The codes documented in this report are preliminary and upon medical accounts receivable specialist reviewmay be revised to meet current compliance requirements. Shilpa Rios MD 01/05/2025 1:33:48 PM This report has been signed electronically.Shilpa Rios MD Number of Addenda: 0 Note Initiated On: 01/05/2025 1:20 PM Scope Withdrawal Time: 0 hours 6 minutes 48 seconds Scope In: 1:23:56 PM Scope Out: 1:32:41 PM Endoscopy Department at [facility] - [address] [place] [phone] IMPRESSION: - Internal hemorrhoids. - The examination [...] LAB CHEMISTRY METHOD 10/21/2024 1:33 PM EDT [facility] Triglycerides 74 0 - 150 mg/dL LAB CHEMISTRY METHOD 10/21/2024 1:33 PM EDT [facility] HDL 27(L) >=40 mg/dL LAB CHEMISTRY METHOD 10/21/2024 1:33 PM EDT [facility] LDL Calculated 59 0 - 100 mg/dL LAB CHEMISTRY METHOD 10/21/2024 1:33 PM EDT [facility] VLDL Cholesterol Edwin 14.8 mg/dL LAB CHEMISTRY METHOD 10/21/2024 1:33 PM EDT [facility] Non HDL Chol. (LDL+VLDL) 74 <145 mg/dL LAB CHEMISTRY METHOD 10/21/2024 1:33 PM EDT [facility] Chol/HDL Ratio 3.7 0.0 - 4.4 LAB CHEMISTRY METHOD 10/21/2024 1:33 PM EDT [facility] Blood Venous blood specimen / Unknown Venipuncture / Unknown 10/21/2024 10:34 AM EDT 10/21/2024 10:34 AM EDT Rigoberto RINALDI LAB BLOOD ORDERABLES Fin al Result Performing Organization Address [facility]/ZIP Co de Phone Number [facility] [address] [place] [address], * (ABNORMAL) Microalbumin creatinine urine ratio (10/21/2024 10:34 AM EDT) Creatinine, Urine 183.0 mg/dL LAB CHEMISTRY METHOD 10/21/2024 2:08 PM EDT [facility] Microalb, Ur 302.0(H) 0.0 - 29.0 mg/L LAB CHEMISTRY METHOD 10/21/2024 2:08 PM EDT [facility] Microalb/Crea t Ratio 165(H) <30 mg/g creat LAB CHEMISTRY METHOD 10/21/2024 2:08 PM EDT [facility] Urine Urine specimen obtained by clean catch procedure / Unknown Non-blood Collection / Unknown 10/21/2024 10:34 AM EDT 10/21/2024 10:34 AM EDT Rigoberto RINALDI LAB URINE ORDERABLES Fin al Result [facility] [address] [place] [address], [place] [phone] * Depression Screening (12/13/2023) Depression Screening Abstracted Historical Provider HEALTH MAINTENANCE Final Result * Diabetes Foot Exam (09/17/2023) Pathologist [facility] Diabetes: Annual Foot Exam Abstracted Historical Provider HEALTH MAINTENANCE Final Result * Hepatitis C Screening (12/22/2012) Pathologist [facility] Hepatitis C Screening Abstracted Historical Provider HEALTH MAINTENANCE Final Result from Last 3 Months or Most Recently Relevant to Health Maintenance Insurance MEDICARE [place]ICAID [place] Care Teams Restaurant Team Member Relationship Specialty Start Date End Date True Madison MD [address] [place] [phone] PCP - General Internal Medicine 04/27/15
--- OUTSIDE RECORDS SUMMARY | 2025-03-12 13:05 | XMS_ITS | Encounter Summary ---
Author Organization [facility] Address [address] [phone] Phone Care Team Providers Care Hoof And Shoe Inspector Name Role Phone True Madison MD Primary Care Provider [phone] Encounter Details Date Type Department Care Team (Late st Contact Info) Description 03/12/2025 Orders Only [facility] [address] [place] [phone] [place] [address] [place] [phone] Isolated proteinuria Social History Tobacco Use Types Packs/Day Years Used Date Smoking Tobacco: Some Days Cigarettes 0.3 30 Started: 2019 Passive Smoke Exposure: Never Smokeless Tobacco: Never Alcohol Use Standard Drinks/Week Comments Never 0 (1 standard drink = 0.6 oz pur e alcohol) Sex and Gender Information Value Date Recorded Sex Assigned at Not on file Legal Sex Male 2:48 PM EDT Gender Identity Not on file Sexual Orientation Not on file documented as of this encounter Plan of Treatment Upcoming Encounters Date Type Department Care Team (Late st Contact Info) Description 09/13/2025 2:15 PM EDT Office Visit [facility] [address] [phone] Mukul Godinez MD [address] [phone] documented as of this encounter Visit Diagnoses Diagnosis Isolated proteinuria documented in this encounter Care Teams Hoof And Shoe Inspector Relationship Specialty Start Date End Date True Madison MD PCP - General Internal Medicine 02/02/21 documented as of this encounter
--- OUTSIDE RECORDS SUMMARY | 2025-03-12 13:05 | XMS_ITS | Clinical Summary ---
Author Organization [facility] Address [address] [place] [phone] Phone Care Team Providers Care Full Stack Web Developer Name Role Phone True Madison MD Primary Care Provider [phone] Allergies Active Allergy Reactions Criticality Noted Date [...] Encounters Date Type Department Care Team Description 03/12/2025 Orders Only [facility] [address] [phone] Mukul Godinez MD Isolated proteinuria 12/23/2024 Refill [facility] [address] [phone] Mukul Godinez MD from Last 3 Months Immunizations Immunization Administration Dates Next Due Hepatitis A 06/03/2017 Influenza TIV (IM) 03/28/2016,05/03/2015, 014,03/06/2012 Pfizer SARS-COV-2 04/21/2021,10/13/2020,09/23/19 21 Pneumococcal Conjugate 13-Valent 12/22/2015 Tdap 01/08/2023,04/11/2022,03/06/2012 Family History Medical History Relation Comments Diabetes Mother Diabetes Sister Relation Status Comments Mother Sister Social History Tobacco Use Types Packs/Day Years Used Date Smoking Tobacco: Some Days Cigarettes 0.3 30 Started: 2018 Passive Smoke Exposure: Never Smokeless Tobacco: Never [...] Office Visit [facility] [address] [phone] Mukul Godinez MD [address] [phone] Health Maintenance Due Date Last Done Comments [...] 12/22/2015 Insurance Medicare Medicaid [place] Medicaid [place] Care Teams Full Stack Web Developer Relationship Specialty Start Date End Date True Madison MD PCP - General Internal Medicine 02/02/21
--- OUTSIDE RECORDS SUMMARY | 2025-03-12 13:05 | XMS_ITS | Encounter Summary ---
Author Organization [facility] Address [address] [place] [address] Phone Care Team Providers Care Turning Machine Operator Name Role Phone True Madison MD Primary Care Provider [phone] Reason for Visit * Reason Onset Date Comments Med Refill 07/04/2022 Encounter Details Date Type Department Care Team (Late st Contact Info) Description 07/04/2022 Refill [facility] [address] [place] [id number] Justin Diaz, DO [address] [place] [address] Social History Tobacco Use Types Packs/Day Years [...] Office Visit [facility] [address] [address] Mukul Godinez MD [address] [address] documented as of this encounter Visit Diagnoses Not on filedocumented in this encounter Care Teams Turning Machine Operator Relationship Specialty Start Date End Date True Madison MD PCP - General Internal Medicine 02/02/21 documented as of this encounter
--- OUTSIDE RECORDS SUMMARY | 2025-03-12 13:05 | XMS_ITS | Clinical Summary ---
Author Organization [facility] Address [address] [place] [address] Phone Care Team Providers Care Java J2Ee Application Developer Name Role Phone True Madison MD Primary Care Provider [phone] Medications VENTOLIN HFA 90 mcg/actuation inhaler INHALE [...] Team Description 12/29/2024 2:00 PM EDT Telemedicine [facility] [address] [place] [address] Abigail Fields, DIET TECH Chronic pain syndrome (Primary Dx); Degeneration of [...] 2:30 PM EST Telemedicine [facility] [address] [place] [address] Abigail Fields NP [address] [place] [address] [email or web address] Maintenance Due Date Last Done Comments [...] topic Medical Devices Not on file Insurance [facility] MED[facility] PART A & B [facility] MED[facility] PART A & B [facility] MED[facility] PART A & B [place] MEDIC[place] A [place] [address] [place] [address] MEDICARE PART A & B Care Teams Java J2Ee Application Developer Relationship Specialty Start Date End Date True Madison MD [address] [place] [id number] PCP - General Internal Medicine 01/29/24 Additional Source Comments The information contained in this document represents components of the legal health record. It is not the complete legal health record.[facility]
== END 2025-03-12 11:49 | disposition home or self-care (01) ==
PROVIDERS: PCP Internal Medicine; Referring Provider Nurse Practitioner Family; Visit Provider Nurse Practitioner Family
DX: M54.50 Low back pain, unspecified (principal); G89.29 Other chronic pain; M25.551 Pain in right hip; M25.552 Pain in left hip; M47.817 Spondylosis without myelopathy or radiculopathy, lumbosacral region; E11.40 Type 2 diabetes mellitus with diabetic neuropathy, unspecified; M79.672 Pain in left foot
CPT/HCPCS: 99204

== ENCOUNTER → 2025-03-12 12:15 | Outpatient (BNV) | payer MEDICARE, MEDICAID, SELFPAY | PROVIDERS: PCP Internal Medicine; Referring Provider Nurse Practitioner Family; Visit Provider Radiology Diagnostic Radiology | DX: M47.817 Spondylosis without myelopathy or radiculopathy, lumbosacral region (principal); M16.9 Osteoarthritis of hip, unspecified | CPT/HCPCS: 72110; 73521 ==

== ENCOUNTER → 2025-03-26 14:00 | Outpatient (BNV) | payer MEDICARE, MEDICAID, SELFPAY | PROVIDERS: PCP Internal Medicine; Visit Provider Radiology Diagnostic Radiology | DX: M81.0 Age-related osteoporosis without current pathological fracture (principal) | CPT/HCPCS: 77080 ==

== ENCOUNTER 2025-03-26 14:01 | Outpatient (REF) | payer MEDICARE, MEDICAID, SELFPAY ==
--- NOTE | ~2025-03-26 | MM_ITS ---
EXAMINATION: DXA BONE DENSITY AXIAL HISTORY: M81.0 - Age-related osteoporosis without current pathological fracture TECHNIQUE: numberFire Dual energy absorptiometry (DEXA) of the lumbar spine, total left hip, and femoral neck was performed. COMPARISON: There are no prior studies for comparison. FINDINGS: The bone mineral density of the lumbar spine is 1.146 g/cm2, corresponding to a T-score of 1.6, and a Z-score of 1.3. This is indicative of normal bone mineral density. The bone mineral density of the left total hip is 1.106 g/cm2, corresponding to a T-score of 0.0, and a Z-score of 0.1. This is indicative of normal bone mineral density. The bone mineral density of the left femoral neck is 1.080 g/cm2, corresponding to a T-score of 0.1, and a Z-score of 0.5. This is indicative of normal bone mineral density. FRACTURE RISK: The FRAX index suggests a risk of major osteoporotic fracture of 3.9%, and of hip fracture 0.3%. MM/XR DEXA axial skeleton IMPRESSION: Based on bone mineral density, and according to World Health Organization (WHO) criteria, the diagnosis is consistent with normal bone mineral density. Statistically, 68% of repeat scans fall within 1 SD (+/- 0.010 g/cm2 for AP spine L1-L4) and 1 SD (+/- 0.012 g/cm2 for femur total) FRAX is a trademark of the [employer], a World Health Organization (WHO) Collaborating Center. Electronically signed by: Asif Hoyos MD 03/26/2025 02:36 PM EDT
--- OUTSIDE RECORDS SUMMARY | 2025-03-26 15:07 | XMS_ITS | Clinical Summary ---
Author Organization [facility] Address [address] [place] [address] Phone Care Team Providers Care Him Director Name Role Phone True Madison MD Primary Care Provider [phone] Medications VENTOLIN HFA 90 mcg/actuation inhaler INHALE [...] Team Description 12/29/2024 2:00 PM EDT Telemedicine [facility] [address] [place] [address] Abigail Fields, LOCOMOTIVE INSPECTOR Chronic pain syndrome (Primary Dx); Degeneration of [...] 2:30 PM EST Telemedicine [facility] [address] [place] [address] Abigail Fields NP [address] [place] [address] [email or web address] Health Maintenance Due Date Last Done Comments [...] topic Medical Devices Not on file Insurance [facility] PART A & B [facility] PART A & B [facility] PART A & B [place] & [place] MEDIC[place] PART A [place] [address] [place] [address] MEDICARE PART A & B Care Teams Him Director Relationship Specialty Start Date End Date True Madison MD [address] [place] [id number] PCP - General Internal Medicine 01/29/24 Additional Source Comments The information contained in this document represents components of the legal health record. It is not the complete legal health record.[facility]
== END 2025-03-26 14:02 | disposition home or self-care (01) ==
LOC: HO.MAMMO 14:01
PROVIDERS: PCP Internal Medicine; Visit Provider Nurse Practitioner Family
DX: M81.0 Age-related osteoporosis without current pathological fracture (principal)
CPT/HCPCS: 77080